=== PATIENT | female | born 1935 | race Two or more races ===

== ENCOUNTER 2017-05-16 16:24 | Inpatient (IN) | payer MEDICARE, MEDICAID ==
--- NOTE | 2017-05-16 17:52 | ED Physician Chart ---
ED Chief Complaint/HPI - Patient Information Date Seen:: 05/16/17 Time Seen:: 17:52 Chief Complaint:: Syncope History of Present Illness:: 81 yo female felt numbness and tingling of bilateral lower extremities. Patient had chronic abdominal pain, s/p hiatal hernia repair Allergies:: Allergies Allergy/AdvReac Type Severity Reaction Status Date / Time Penicillins [PCN] AdvReac Verified 05/16/17 16:32 Sulfa (Sulfonamide AdvReac Verified 05/16/17 16:32 Antibiotics) Vitals:: Vital Signs - 8 hr 05/16/17 16:33 Temp 98.7 F HR 72 RR 16 BP 130/70 O2 Sat % 98 ED Past Medical History - Past Medical History Past Medical History: HTN, DM, Asthma/COPD, PUD/GERD, Other (atrial fibrillation , osteoporosis, urinary incontinence, varicose veins of BLE) Surgical History: Hernia (hiatal hernia repair), other Psychiatricy History: Depression, Other (Anxiety) Family Medical History - Family Member Daughter Hx Family Cancer: No Hx Family Coronary Artery Disease: No Hx Family Stroke: No Hx Family Diabetes: No Hx Family Seizures: No Hx Family Dementia: No Hx Family HIV: No Hx Family COPD: No Hx Family Psychiatric Problems: No ED Septic Shock - <6hrs of presentation: Vital Signs: Vital Signs - 8 hr 05/16/17 16:33 Temp 98.7 F HR 72 RR 16 BP 130/70 O2 Sat % 98
[2017-05-16 18:48] LABS: BASOPHILE ABSOLUTE 0.1 Th/cumm (0-0.2); HEMATOCRIT 37.1 % (41.0-60); HEMOGLOBIN 12.4 gm/dL (12-16); LYMPHOCYTE ABSOLUTE 0.6 Th/cmm (1.5-3.0); MEAN CELL VOLUME 88.6 fl (81-100); MEAN CORPUSCULAR HEMOGLOBIN 29.7 pg (27.0-31.0); MEAN CORPUSCULAR HGB CONC 33.5 pg (28.0-36.0); MEAN PLATELET VOLUME 7.9 fl; MONOCYTE ABSOLUTE 0.4 Th/cmm (0.3-1.0); NEUTROPHILE ABSOLUTE 8.5 Th/cmm (1.8-8.0); PLATELET COUNT 246 Th/cmm (150-400); RED BLOOD COUNT 4.19 Mil/cmm (3.80-5.20); RED CELL DISTRIBUTION WIDTH 13.2 % (11.5-20.0); WHITE BLOOD COUNT 9.6 Th/cmm (4.8-10.8)
[2017-05-16 19:04] LABS: ALB/GLOB RATIO 1.8 (1.0-1.8); ALBUMIN 4.2 gm/dL (3.7-5.3); ALKALINE PHOSPHATASE 36 U/L (34-104); ANION GAP 12.8 (7.0-16.0); BILIRUBIN,TOTAL 1.4 mg/dL (0.3-1.0); BUN - UREA NITROGEN 13 mg/dL (7-25); CALCIUM SERUM 9.4 mg/dL (8.6-10.3); CARBON DIOXIDE 32.5 mEq/L (21.0-31.0); CHLORIDE 91 mEq/L (98-107); CREATININE - SERUM 0.6 mg/dL (0.6-1.2); GLUCOSE 244 mg/dL (70-105); POTASSIUM SERUM 3.3 mEq/L (3.5-5.1); SGOT 24 U/L (13-39); SGPT/ALT 15 U/L (7-52); SODIUM SERUM 133 mEq/L (136-145); TOTAL PROTEIN,SERUM 6.6 gm/dL (6.0-8.3)
[2017-05-16 19:12] LABS: AMYLASE SERUM 38 U/L (29-103); LIPASE 4 U/L (11-82)
[2017-05-16 19:23] LABS: URINE MICROSCOPIC INDICATED? YES; URINE SOURCE RANDOM
[2017-05-16] MEDS ORDERED: Sodium Chloride 0.9% 1,000 ML IV ONE (19:29)
[2017-05-16 19:33] LABS: URINE BILIRUBIN NEGATIVE (NEGATIVE); URINE GLUCOSE (UA) 250 mg/dL (NEGATIVE); URINE KETONE TRACE mg/dL (NEGATIVE); URINE LEUKOCYTE ESTERASE NEGATIVE (NEGATIVE); URINE NITRATE NEGATIVE (NEGATIVE)
[2017-05-16 19:56] LABS: URINE CLARITY CLEAR (CLEAR); URINE COLOR YELLOW
[2017-05-16 19:57] LABS: URINE BACTERIA NONE SEEN /hpf (NONE SEEN); URINE BLOOD NEGATIVE (NEGATIVE); URINE EPITHELIAL CELLS NONE SEEN /lpf (FEW); URINE PROTEIN NEGATIVE (NEGATIVE); URINE RBC NONE SEEN /hpf (0-5); URINE WBC NONE SEEN /hpf (0-5)
[2017-05-16 20:35] LABS: BAND NEUTROPHILE 6 % (0-10); BASOPHIL 0 % (0-3); EOSINOPHIL 0 % (0-5); LYMPHOCYTE 7 % (20-50); MONOCYTE 3 % (2-10); NEUTROPHILS 84 % (40-80); PLATELET ESTIMATE ADEQUATE (NORMAL); PLATELET MORPHOLOGY NORMAL (NORMAL); TOTAL CELLS COUNTED 100
[2017-05-16 21:31] LABS: ALLEN TEST positive
[2017-05-16] MEDS ORDERED: Potassium Chloride 20 mEq ER Tab PO ONE (22:14)
[2017-05-17] MEDS: Hydrocodone/APAP 5mg/325mg Tab PO PRN ×4 (00:24→21:33)
[2017-05-17 00:30] VITALS: BP 119/63
[2017-05-17] MEDS: Sodium Chloride 0.9% 1,000 ML IV SCH ×2 (00:42→21:37)
[2017-05-17 06:37] LABS: % BASOPHILS 1.3 % (0.0-2.0); % EOSINOPHILS 2.3 % (0.0-5.0); % MONOCYTES 8.4 % (2.0-10.0); BASOPHILE ABSOLUTE 0.1 Th/cumm (0-0.2); EOSINOPHILE ABSOLUTE 0.2 Th/cmm (0.1-0.4); HEMOGLOBIN 10.7 gm/dL (12-16); LYMPHOCYTE ABSOLUTE 1.3 Th/cmm (1.5-3.0); MEAN CELL VOLUME 88.6 fl (81-100); MEAN CORPUSCULAR HGB CONC 33.9 pg (28.0-36.0); MEAN PLATELET VOLUME 7.9 fl; MONOCYTE ABSOLUTE 0.6 Th/cmm (0.3-1.0); NEUTROPHILE ABSOLUTE 4.7 Th/cmm (1.8-8.0); PLATELET COUNT 215 Th/cmm (150-400); RED BLOOD COUNT 3.58 Mil/cmm (3.80-5.20); RED CELL DISTRIBUTION WIDTH 13.6 % (11.5-20.0)
[2017-05-17 06:41] LABS: HEMATOCRIT 31.7 % (41.0-60); WHITE BLOOD COUNT 6.9 Th/cmm (4.8-10.8)
[2017-05-17 07:01] LABS: ALB/GLOB RATIO 1.8 (1.0-1.8); ALBUMIN 3.5 gm/dL (3.7-5.3); ALKALINE PHOSPHATASE 29 U/L (34-104); ANION GAP 10.3 (7.0-16.0); BUN - UREA NITROGEN 11 mg/dL (7-25); CALCIUM SERUM 8.5 mg/dL (8.6-10.3); CARBON DIOXIDE 32.2 mEq/L (21.0-31.0); CHLORIDE 96 mEq/L (98-107); CHOLESTEROL 124 mg/dL (<200); CREATININE - SERUM 0.5 mg/dL (0.6-1.2); CREATININE KINASE 893 U/L (30-223); HDL -HIGH DENSITY LIPOPROTEIN 32 mg/dL (23-92); MAGNESIUM 1.6 mg/dL (1.9-2.7); POTASSIUM SERUM 3.5 mEq/L (3.5-5.1); SGOT 27 U/L (13-39); SGPT/ALT 14 U/L (7-52); SODIUM SERUM 135 mEq/L (136-145); TOTAL PROTEIN,SERUM 5.5 gm/dL (6.0-8.3); TRIGLYCERIDES 138 mg/dL (<150)
[2017-05-17 07:02] LABS: GLUCOSE 140 mg/dL (70-105)
--- NOTE | 2017-05-17 08:47 | Diagnostic Imaging Report ---
CT scan of the brain without intravenous contrast HISTORY: Stroke, CVA Total DLP equals 518 CTDI equals 30.6 Axial sections were obtained from the base of the skull to the vertex. There is enlargement of ventricular system along with enlargement of cerebral sulci and subarachnoid cisterns reflecting generalized atrophy. Somewhat more focal encephalomalacia noted through the left temporal parietal region. Changes may be associated with an old infarct. There is an approximate 5 Barrett hypodensity noted within the right temporal white matter region. Changes may be associated with an old infarct. There is generalized hypodensity throughout the supratentorial white matter regions. No mass effect. The findings may be associated with chronic small vessel ischemic disease. No extra-axial masses or abnormal fluid collections. Atherosclerotic calcification seen in the region of the vertebral and basilar arteries at the base of the skull. IMPRESSION: 1. No acute abnormalities 2. Extensive cerebral atrophy. Somewhat more focal encephalomalacia seen within the left temporoparietal area. Changes may reflect an old infarct. 3. Small hypodense focus within the right temporal white matter region that may represent an old lacunar infarct 4. Supratentorial white matter changes that may be associated with chronic small vessel ischemic disease 5. Atherosclerotic vascular changes
--- NOTE | 2017-05-17 08:50 | Diagnostic Imaging Report ---
CT scan of the chest without intravenous contrast HISTORY: Pain, mass Total DLP equals 241 CTDI equals 6.9 Axial sections were obtained from a level above the clavicles down to level below the diaphragm. The heart appears somewhat enlarged. Coronary artery and atherosclerotic vascular calcification is noted. There is a large retrocardiac hiatal hernia with the gastric fundus above the diaphragm. No definite abnormal hilar masses. There are bilateral interstitial lung changes. The overall appearance suggests probable chronic change. No free pleural fluid. Degenerative changes and osteoporosis seen throughout the spine with suggestion of partial compression involving several midthoracic vertebral bodies. IMPRESSION: 1. Large retrocardiac hiatal hernia 2. Bilateral pulmonary parenchymal changes most likely chronic 3. Generous heart size with evidence of coronary artery and atherosclerotic vascular calcification
--- NOTE | 2017-05-17 08:52 | Diagnostic Imaging Report ---
CT scan abdomen and pelvis without intravenous contrast HISTORY: Pain Total DLP equals 485 CTDI equals 11.7 Axial sections were obtained from the xiphoid process down to the pubic symphysis. There is a large retrocardiac hiatal hernia with gastric fundus above the diaphragm. No focal hepatic lesions are seen. The spleen appears normal. No focal abnormality seen within the pancreas. Surgical clips are seen in the candelaria hepatis region consistent with a prior cholecystectomy. There is an approximate 3.0 cm hypodense lesion involving the right adrenal gland. Density measurements are consistent with a benign etiology. No significant focal renal lesions. No hydronephrosis. Atherosclerotic calcination seen throughout the aorta. The exam of the pelvis demonstrates preservation of normal fat planes. No abnormal soft tissue masses or abnormal fluid collections. Stool-filled nondilated large bowel is noted. Atherosclerotic calcination noted throughout the aorta. Degenerative changes of generalized osteoporosis seen throughout the spine. IMPRESSION: 1. Large retrocardiac hiatal hernia 2. Right adrenal lesion. Density measurements are consistent with a benign etiology 3. Status post cholecystectomy 4. Stool-filled nondilated large bowel 5. Atherosclerotic vascular changes
--- NOTE | 2017-05-17 08:58 | Diagnostic Imaging Report ---
Portable chest x-ray HISTORY: Shortness of breath The heart appears enlarged. There is a poor inspiration. No focal bony processes. There is apparent widening of the mediastinum. This may simply be related to patient rotation. A repeat nonrotated chest radiograph if possible or a CT scan would provide for further assessment. There is suggestion a retrocardiac density consistent with a hiatal hernia. IMPRESSION: 1. Apparent widening of the mediastinum probably related to patient rotation. If possible, a repeat nonrotated chest radiograph with provide further assessment. Otherwise, a CT scan would be helpful. 2. Findings suggesting a retrocardiac hiatal hernia 3. Cardiomegaly.
[2017-05-17 09:26] LABS: INR 1.6 (0.5-1.4); PROTHROMBIN TIME (TEST) 17.1 SECONDS (9.5-11.5)
--- NOTE | 2017-05-17 12:00 | History and Physical ---
History of Present Illness - HPI Chief Complaint: Patient refer that she went to the bathroom and suddenly she lost muscle strength of lower extremities and she could not move. Her daughter help her and both sitting down in the floor because she has no muscle strength. The call ambulance and was transported to ER. HPI: Patient lost muscle strength in all extremities and was not able to walk. She never lost conscious. Vital Signs: Last Vital Signs Temp 98.8 F 05/17/17 08:33 Pulse 91 05/17/17 08:33 Resp 16 05/17/17 08:33 BP 150/82 05/17/17 08:33 Pulse Ox 99 05/17/17 08:33 Past Medical History Cardiovascular: Report: AFIB, CAD, HTN Pulmonary: Report: COPD [employer]: Report: No Pertinent Hx GI: Report: Other (S/P Hiatal hernia) Psych: Report: No Pertinent Hx Musculoskeletal: Report: Weakness Infectious Disease: Report: No Pertinent Hx Renal/: Report: No Pertinent Hx Endocrine: Report: No Pertinent Hx Dermatology: Report: Other (PVD) - Past Surgical History Past Surgical History: Other (Hernia hiatal repair.) Family Medical History - Family Member Daughter History Unknown: Yes Ethnicity: Unknown Living Status: Unknown Hx Family Cancer: (UNKNOWN) Hx Family Coronary Artery Disease: (UNKNOWN) Hx Family Congestive Heart Failure: (UNKNOWN) Hx Family Hypertension: (UNKNOWN) Hx Family Stroke: (UNKNOWN) Hx Family Diabetes: (UNKNOWN) Hx Family Seizures: (UNKNOWN) Hx Family Dementia: (UNKNOWN) Hx Family AIDS: (UNKNOWN) Hx Family HIV: No Hx Family COPD: (UNKNOWN) Hx Family Hepatitis: (UNKNOWN) Hx Family Psychiatric Problems: (UNKNOWN) Hx Family Tuberculosis: (UNKNOWN) Other Medical History: UNKNOWN Social History Smoke: No Alcohol: None Drugs: None Lives: With Family Domestic Violence: Negative - Medications Home Medications: Home Medication Medication Instructions Recorded Type Digoxin [Lanoxin] 0.125 mg PO DAILY 05/17/17 History Hydrocodone/APAP 5mg/325mg [[place] 1 tab PO Q6H PRN 05/17/17 History 5mg/325mg] Losartan/Hydrochlorothiazide 1 tab PO DAILY 05/17/17 History [Losartan-Hctz 100-12.5 mg Tab] Magnesium Hydroxide [Milk of 30 ml PO HS 05/17/17 History Magnesia] Meclizine [Antivert*] 12.5 mg PO TID PRN 05/17/17 History Warfarin Sodium [Coumadin] 2.5 mg PO DAILY 05/17/17 History alprazOLAM [Xanax*] 0.25 mg PO Q6HR PRN 05/17/17 History metFORMIN [Glucophage] 500 mg PO TID 05/17/17 History - Allergies Allergies/Adverse Reactions: Allergies Allergy/AdvReac Type Severity Reaction Status Date / Time Penicillins [PCN] AdvReac Verified 05/16/17 16:32 Sulfa (Sulfonamide AdvReac Verified 05/16/17 16:32 Antibiotics) Review of Systems - Review of Systems Constitutional: Report: Weakness Eyes: Report: No Significant ENT: Report: No Significant Respiratory: Report: No Significant Cardiovascular: Report: Palpitations Genitourinary: Report: No Significant Musculoskeletal: Report: Other (Weakness) Skin: Report: Other (Lower extremiries skin are dry, with poor circulation. ) Neurological: Report: Weakness Physical Exam - Physical Exam HEENT: Report: Ears Nose Throat within normal limits Neck: Report: Within normal limits Cardiovascular Systems: Report: Other (Irregular) Respiratory: Report: Breath Sounds are within normal limits Abdomen: Report: Non-tender to palpation Back: Report: Other (pain at palpation) Extremities: Report: Non-tender to palpation. Skin: Report: Other (Lower stremities skin is dry purple color) Neuro/Psych: Report: Mood affect is within normal limits - Lab Results All Lab Results last 24 hours: Laboratory Results - last 24 hr 05/17/17 05/17/17 05/17/17 00:14 06:19 06:19 WBC 6.9 D RBC 3.58 L Hgb 10.7 L Hct 31.7 L D MCV 88.6 MCH 30.0 MCHC Differential 33.9 RDW 13.6 Plt Count 215 MPV 7.9 Neutrophils % 69.0 Lymphocytes % 19.0 L Monocytes % 8.4 Eosinophils % 2.3 Basophils % 1.3 PT INR Sodium 135 L Potassium 3.5 Chloride 96 L Carbon Dioxide 32.2 H Anion Gap 10.3 BUN 11 Creatinine 0.5 L Est GFR ( Amer) TNP Est GFR (Non-Af Amer) TNP BUN/Creatinine Ratio 22.0 Glucose 140 H D POC Glucose 147 H Calcium 8.5 L Magnesium 1.6 L Total Bilirubin 2.0 H AST 27 ALT 14 Alkaline Phosphatase 29 L Ammonia Creatine Kinase 893 H CK-MB (CK-2) 13.9 H Troponin I Total Protein 5.5 L Albumin 3.5 L Globulin 2.0 Albumin/Globulin Ratio 1.8 Triglycerides 138 Cholesterol 124 LDL Cholesterol Direct 80 HDL Cholesterol 32 05/17/17 05/17/17 05/17/17 06:19 08:00 08:38 WBC RBC Hgb Hct MCV MCH MCHC Differential RDW Plt Count MPV Neutrophils % Lymphocytes % Monocytes % Eosinophils % Basophils % PT 17.1 H INR 1.60 H Sodium Potassium Chloride Carbon Dioxide Anion Gap BUN Creatinine Est GFR ( Amer) Est GFR (Non-Af Amer) BUN/Creatinine Ratio Glucose POC Glucose Calcium Magnesium Total Bilirubin AST ALT Alkaline Phosphatase Ammonia 64 H Creatine Kinase CK-MB (CK-2) Troponin I 0.04 Total Protein Albumin Globulin Albumin/Globulin Ratio Triglycerides Cholesterol LDL Cholesterol Direct HDL Cholesterol - Assessment Assessment: Patient is awake, alert, calm, in no acute distress. Dx: Loss of muscle strength , A-fib, DM, COPD, GERD. - Plan Plan: Patient is continue with home meds, MRI ordered, Consult with neurology, cardio and GI requested. Will continue to monitor.
[2017-05-17] MEDS ORDERED: Mag Sulfate 2gm/50mL Premix 2 GM/50 ML BAG IV ONE (13:57)
[2017-05-17 15:38] LABS: A1C % 7.3 % (4.0-6.0)
--- NOTE | 2017-05-17 16:13 | General Progress Note ---
Subjective - Review of Systems Service Date: 05/17/17 Events since last encounter: consult dictated CT results noted patient appears to be asymptomatic of the large hiatal hernia will need EGD if she has dysphagia sor SOB Objective - Results Result Diagrams: 05/17/17 06:19 05/17/17 06:19 Recent Labs: Laboratory Last Values WBC 6.9 Th/cmm (4.8-10.8) D 05/17/17 06:19 RBC 3.58 Mil/cmm (3.80-5.20) L 05/17/17 06:19 Hgb 10.7 gm/dL (12-16) L 05/17/17 06:19 Hct 31.7 % (41.0-60) L D 05/17/17 06:19 MCV 88.6 fl (81-100) 05/17/17 06:19 MCH 30.0 pg (27.0-31.0) 05/17/17 06:19 MCHC Differential 33.9 pg (28.0-36.0) 05/17/17 06:19 RDW 13.6 % (11.5-20.0) 05/17/17 06:19 Plt Count 215 Th/cmm (150-400) 05/17/17 06:19 MPV 7.9 fl 05/17/17 06:19 Neutrophils % 69.0 % (40.0-80.0) 05/17/17 06:19 Band Neutrophils % 6 % (0-10) 05/16/17 18:40 Lymphocytes % 19.0 % (20.0-50.0) L 05/17/17 06:19 Monocytes % 8.4 % (2.0-10.0) 05/17/17 06:19 Eosinophils % 2.3 % (0.0-5.0) 05/17/17 06:19 Basophils % 1.3 % (0.0-2.0) 05/17/17 06:19 Neutrophils (Manual) 84 % (40-80) H 05/16/17 18:40 Lymphocytes 7 % (20-50) L 05/16/17 18:40 Monocytes 3 % (2-10) 05/16/17 18:40 Eosinophils 0 % (0-5) 05/16/17 18:40 Basophils 0 % (0-3) 05/16/17 18:40 Platelet Estimate ADEQUATE (NORMAL) 05/16/17 18:40 Platelet Morphology NORMAL (NORMAL) 05/16/17 18:40 RBC Morph Micro Appear NORMAL (NORMAL) 05/16/17 18:40 PT 17.1 SECONDS (9.5-11.5) H 05/17/17 08:38 INR 1.60 (0.5-1.4) H 05/17/17 08:38 Specimen Source arterial 05/16/17 19:27 Sample Site right radial 05/16/17 19:27 pH 7.50 (7.35-7.45) H 05/16/17 19:27 pCO2 50.0 mmHg (35.0-45.0) H 05/16/17 19:27 pO2 82.0 mmHg (80.0-100.0) 05/16/17 19:27 HCO3 35.7 mEq/L (20.0-26.0) H 05/16/17 19:27 Base Excess 13.8 mEq/L (-3.0-3.0) H 05/16/17 19:27 O2 Saturation 97.0 % (92.0-100.0) 05/16/17 19:27 Antonio Test positive 05/16/17 19:27 Vent Rate n/a 05/16/17 19:27 Inspired O2 28 05/16/17 19:27 Tidal Volume n/a 05/16/17 19:27 PEEP n/a 05/16/17 19:27 Pressure (ins/psv/peep) n/a 05/16/17 19:27 Critical Value ab wire basket maker 05/16/17 19:27 Sodium 135 mEq/L (136-145) L 05/17/17 06:19 Potassium 3.5 mEq/L (3.5-5.1) 05/17/17 06:19 Chloride 96 mEq/L (98-107) L 05/17/17 06:19 Carbon Dioxide 32.2 mEq/L (21.0-31.0) H 05/17/17 06:19 Anion Gap 10.3 (7.0-16.0) 05/17/17 06:19 BUN 11 mg/dL (7-25) 05/17/17 06:19 Creatinine 0.5 mg/dL (0.6-1.2) L 05/17/17 06:19 Est GFR ( Amer) TNP 05/17/17 06:19 Est GFR (Non-Af Amer) TNP 05/17/17 06:19 BUN/Creatinine Ratio 22.0 05/17/17 06:19 Glucose 140 mg/dL (70-105) H D 05/17/17 06:19 POC Glucose 147 MG/DL (70 - 105) H 05/17/17 00:14 Hemoglobin A1c % 7.3 % (4.0-6.0) H 05/16/17 18:40 Calcium 8.5 mg/dL (8.6-10.3) L 05/17/17 06:19 Magnesium 1.6 mg/dL (1.9-2.7) L 05/17/17 06:19 Total Bilirubin 2.0 mg/dL (0.3-1.0) H 05/17/17 06:19 AST 27 U/L (13-39) 05/17/17 06:19 ALT 14 U/L (7-52) 05/17/17 06:19 Alkaline Phosphatase 29 U/L (34-104) L 05/17/17 06:19 Ammonia 64 umol/L (16-53) H 05/17/17 08:00 Creatine Kinase 893 U/L (30-223) H 05/17/17 06:19 CK-MB (CK-2) 13.9 ng/mL (0.6-6.3) H 05/17/17 06:19 Troponin I 0.04 ng/mL (0.01-0.05) 05/17/17 06:19 B-Natriuretic Peptide 181.0 pg/mL (5.0-100.0) H 05/16/17 18:40 Total Protein 5.5 gm/dL (6.0-8.3) L 05/17/17 06:19 Albumin 3.5 gm/dL (3.7-5.3) L 05/17/17 06:19 Globulin 2.0 gm/dL 05/17/17 06:19 Albumin/Globulin Ratio 1.8 (1.0-1.8) 05/17/17 06:19 Triglycerides 138 mg/dL (<150) 05/17/17 06:19 Cholesterol 124 mg/dL (<200) 05/17/17 06:19 LDL Cholesterol Direct 80 mg/dL (75-193) 05/17/17 06:19 HDL Cholesterol 32 mg/dL (23-92) 05/17/17 06:19 Amylase 38 U/L (29-103) 05/16/17 18:40 Lipase 4 U/L (11-82) L 05/16/17 18:40 Urine Source RANDOM 05/16/17 19:05 Urine Color YELLOW 05/16/17 19:05 Urine Clarity CLEAR (CLEAR) 05/16/17 19:05 Urine pH 8.0 (4.6 - 8.0) 05/16/17 19:05 Ur Specific [place] 1.015 (1.005-1.030) 05/16/17 19:05 Urine Protein NEGATIVE mg/dL (NEGATIVE) 05/16/17 19:05 Urine Glucose (UA) 250 mg/dL (NEGATIVE) H 05/16/17 19:05 Urine Ketones TRACE mg/dL (NEGATIVE) 05/16/17 19:05 Urine Blood NEGATIVE (NEGATIVE) 05/16/17 19:05 Urine Nitrate NEGATIVE (NEGATIVE) 05/16/17 19:05 Urine Bilirubin NEGATIVE (NEGATIVE) 05/16/17 19:05 Urine Urobilinogen 1.0 E.U./dL (0.2 - 1.0) 05/16/17 19:05 Ur Leukocyte Esterase NEGATIVE (NEGATIVE) 05/16/17 19:05 Urine RBC NONE SEEN /hpf (0-5) 05/16/17 19:05 Urine WBC NONE SEEN /hpf (0-5) 05/16/17 19:05 Ur Epithelial Cells NONE SEEN /lpf (FEW) 05/16/17 19:05 Urine Bacteria NONE SEEN /hpf (NONE SEEN) 05/16/17 19:05 - Physical Exam Vitals and I&O: Vital Signs Temp 97.7 F 05/17/17 12:00 Pulse 95 05/17/17 13:54 Resp 16 05/17/17 15:27 BP 135/66 05/17/17 12:00 Pulse Ox 99 05/17/17 12:00 Intake & Output 05/16/17 05/17/17 05/17/17 18:59 06:59 18:59 Intake Total 480 Balance 480 Weight (lbs) 67.132 kg Intake: Oral 480 Other: # Voids 1 # Bowel Movements 0 Stool Characteristics Soft Active Medications: Current Medications Acetaminophen/Hydrocodone Bitart ([place] 5mg/325mg) 1 tab PO Q6H PRN PRN Reason: Pain (Moderate) Stop: 07/15/17 23:54 Last Admin: 05/17/17 11:17 Dose: 1 tab Alprazolam (Xanax) 0.25 mg PO Q6HR PRN; Protocol PRN Reason: Anxiety Stop: 07/16/17 12:10 Digoxin (Lanoxin) 0.125 mg PO DAILY [facility] Stop: 07/16/17 12:14 Last Admin: 05/17/17 13:54 Dose: 0.125 mg Sodium Chloride (Nacl 0.9%) 1,000 mls @ 60 mls/hr IV .[id number] [facility] Stop: 07/15/17 22:14 Last Admin: 05/17/17 00:42 Dose: 60 mls/hr Lactulose (Cephulac) 20 gm PO BID [facility] Stop: 07/16/17 16:59 Magnesium Hydroxide (Milk Of Magnesia) 30 ml PO HS [facility] Stop: 07/16/17 20:59 Miscellaneous (Losartan/Hydrochlorothiazide [Losartan-Hctz 100-12.5 Mg Tab]) 1 tab PO DAILY [facility] Stop: 07/17/17 08:59 Pantoprazole Sodium (Protonix) 40 mg IVP DAILY [facility] Stop: 07/16/17 12:29 Last Admin: 05/17/17 15:40 Dose: 40 mg Warfarin Sodium (Coumadin Per Pharmacy) 1 ea MC PRN PRN; Protocol PRN Reason: RX MONITORING Stop: 07/16/17 12:46 Nutritional Asmnt/Malnutr-PDOC - Dietary Evaluation Malnutrition Findings (Please click <Entered> for more info): Nutritional Asmnt/Malnutrition Start: 05/17/17 12: 52 Text: Status: Active Freq: Document 05/17/17 12:52 NATALYA (Rec: 05/17/17 13:15 NATALYA SEGAL- [email or web address]) Nutritional Asmnt/Malnutrition Patient General Information Nutritional Screening Consult Diagnosis syncope Pertinent Medical Hx/Surgical Hx Afib, CAD, HTN, COPD, Hiatal hernia, weakness, PVD Subjective Information Consult received for Diabetic, small skin tear, discoloration and no appetite to eat. Current Diet Order/ Nutrition Support Pureed Patient / S.O Can Pertinent Medications lactulose, MOM, protonix, coumadin Pertinent Labs Glucose 140-244, magnesium 1.6 , Total bilirubin 2, ammonia 64, total protein 5.5, albumin 3.5 Nutritional Hx/Data Height 1.55 m Height (Calculated Centimeters) 154.9 Current Weight (lbs) 67.132 kg Weight (Calculated Kilograms) 67.1 Weight (Calculated Grams) 09406.7 [place] Body Weight 105 % [place] Body Weight 140 Body Mass Index (BMI) 27.9 Recent Weight Change No Weight Status Overweight GI Symptoms GI Symptoms Constipation Last BM None noted since admission Difficult in: None Food Allergies No Cultural/Ethnic/Mormon Belief None indicated Usual diet at home Regular Skin Integrity/Comment: [place] 15, Skin tear Lower extremity Current %PO Poor (25-49%) Estimated Nutritional Goals BEE in Kcals: Using Current wt Calories/Kcals/Kg 67.2kg CBW (25-30 kcal/kg) Kcals Calculated ~3378-8113 kcal/day Protein: Using Current wt Protein g/k gm/kg Protein Calculated ~65 gm/day Fluid: ml ~2906-5664 ml/day (1 ml/kcal) Nutritional Problem 2. Problem Problem Altered GI function related to Etiology constipation aeb Signs/Symptoms: no BM since admission. 1. Problem Problem Inadequate oral itake related to Etiology decreased appetite, increased nutrient needs Signs/Symptoms: aeb meeting <50% of estimated nutrient needs Intervention/Recommendation Comments 1. Continue Pureed diet as tolerated by patient; this diet provides Health Shake every meal for extra nutrition . 2. Bowel regimen per MD; bowel movement may help with appetite. 3. If appetite still not improved, MD to consider appetite stimulant to help oral intake. 4. If POC glucose increases, consider modifying to 60 gm CCHO. 5. Consider MVI and Vitamin C due to impaired skin integrity . Expected Outcomes/Goals Expected Outcomes/Goals Oral intake to meet >75% of estimated nutrient needs, nutrition related labs normalize, weight stable, improved skin integrity.
[2017-05-17] MEDS: Lactulose 10 Gm/15 mL 30mL UDC PO SCH (16:50)
--- NOTE | 2017-05-17 18:09 | Consultation ---
DATE OF CONSULTATION: 05/17/2017 SURGICAL CONSULTATION REFERRING PHYSICIAN: Dr. Leija. REASON FOR CONSULTATION: Hiatal hernia. Thank you for referring this patient to me. HISTORY OF PRESENT ILLNESS: This is an 81-year-old female who came in through the Emergency Room because of sudden loss of strength of the lower extremities, raising the question of a CVA. The patient underwent CT of the head, which did not show new infarct, but probably an old lacunar infarct. CT of the chest; however, showed a large retrocardiac hiatal hernia. CT of the abdomen showed a previous cholecystectomy. No acute abnormality except for stool filled colon. PAST MEDICAL HISTORY: Includes previous hiatal hernia repair x 2, last being about 8 years ago. The other comorbidities include hypertension, diabetes mellitus, COPD and atrial fibrillation. LABORATORY STUDIES: Showed CBC to be essentially normal. Chemistry, potassium is 3.3, BUN is normal as the creatinine. Blood sugar high at 244. Total bilirubin high at 1.4 and this was repeated today and it has gone up to 2.0. PHYSICAL EXAMINATION: GENERAL: The patient appears to be oriented. ABDOMEN: Distended. There is quite a bit of firmness in the mid abdomen above the umbilicus. The patient does not appear to be in any distress for swallowing and/or breathing in spite of the large retrocardiac hiatal hernia. RECOMMENDATIONS: If the patient remains essentially asymptomatic from the hiatal hernia, diagnostic EGD might be performed, but repair would be questionable in view of her advanced age. We will follow with you. [facility]# [id number]
--- NOTE | 2017-05-17 21:29 | Consultation ---
DATE OF CONSULTATION: 05/17/2017 NEUROLOGY CONSULT HISTORY OF PRESENT ILLNESS: An 81-year-old female complains of passing out. Apparently, she collapsed to the ground. I am not sure whether she actually passed out or not. She has been complaining of some tingling in the lower extremity, weakness, having more and more difficulty getting up and walking. PAST MEDICAL HISTORY: Diabetes, hypertension, COPD, asthma, atrial fibrillation, osteoporosis, varicose veins both legs and GERD. PAST SURGICAL HISTORY: Surgery is hernia. PSYCHIATRIC ILLNESS: Depression. MEDICATIONS: As per reconciliation. Here, the patient is essentially on [place]. REVIEW OF SYSTEMS: The patient is weak. Difficulty walking now. Urinary incontinence. Confused. Forgetful. No seizures. Review of systems is otherwise negative. PHYSICAL EXAMINATION: VITAL SIGNS: Temperature 97.6, blood pressure 120/64, pulse is 68. NECK: Supple. No neck bruits. HEART: Sounds S1, S2. LUNGS: Clear. NEUROLOGIC: The patient is awake, alert. The patient gives me her name. She tells me where she lives. She is able to name simple objects. She did not know the day. She knew the month. CRANIAL: Pupils react to light. Full eye movement. MOTOR: She will lift both arms up, but moans and groans and complains of muscles pain over the shoulder, proximal arms. Legs, she will bend them at the knees, unable to hold them up. Weakness at the feet. Reflex is about -1 in upper extremity and absent at the knees and ankles. Sensation is reduced in the feet. INVESTIGATIONS: The patient had a CT scan, but I do not have the report. LABORATORY DATA: WBC is 6.9, hemoglobin 10.7. ABGs, pCO2 50.0. Sodium 135, magnesium 1.6. CPK is elevated at 893. ASSESSMENT: 1. Syncope. 2. Weakness. 3. Rule out myelopathy, rule out cervical spinal process. 4. Diabetes with neuropathy. 5. Atrial fibrillation. 6. Hypertension. PLAN: MRI cervical spine. Lab studies. The patient's further workup depending on the progress. JOB# [id number]
[2017-05-17] MEDS: Magnesium Hydroxide (MOM) 30 mL UDC PO SCH (21:33)
--- NOTE | 2017-05-18 03:19 | Consultation ---
DATE OF CONSULTATION: 05/17/2017 REASON FOR CONSULTATION: Large hiatal hernia, near syncopal episode, and whether they are related. HISTORY OF PRESENT ILLNESS: This consult was obtained through the courtesy of Dr. Leija for this 81-year-old with history of hypertension, diabetes, osteoporosis, atrial fibrillation, large hiatal hernia, who had surgery for the hiatal hernia at least once possibly second surgery whether for the hernia itself or more than likely to repair of ventral hernia. The patient presented to the hospital with a near syncopal episode. She was in the bathroom, she could stand up, then became wobbly, and then she could not remember what was happening, so even if the family claims that she did not lose consciousness, there has to be a period of time where she does not remember what happened, so she has either syncope or near syncopal episode. When she came to the hospital here, she was evaluated for that and part of the workup included CT that showed large retrocardiac hiatal hernia. GI consult was called in for further evaluation. The patient had surgery in 2002 in [place] and a year later, she had another surgery with a mesh placed, so more than likely she had a ventral hernia and then we put a mesh there. The patient was evaluated in [facility] about 8 or 9 years ago and was told that she has a large hiatal hernia still, but she was advised not to have surgery. The patient denies ongoing issues, but the symptoms yesterday. She usually tend to have constipation. No nausea or vomiting, no weight loss. PAST MEDICAL HISTORY: Hypertension, diabetes, osteoporosis, and atrial fibrillation. PAST SURGICAL HISTORY: She had hernia repair. She had hip surgery. SOCIAL HISTORY: Ex-smoker, quit in 1998, nonalcoholic, non-IV drug abuser. FAMILY HISTORY: Noncontributory. ALLERGIES: Penicillin and sulfa. MEDICATIONS: The patient is given Gabriels, Xanax, digoxin, lactulose, milk of magnesia, Antivert, Coumadin. REVIEW OF SYSTEMS: No weight loss. No hematemesis, melena, or hematochezia. Some mild abdominal pain. PHYSICAL EXAMINATION: GENERAL: The patient is awake, oriented to self, place and time, in mild distress. VITAL SIGNS: Blood pressure is 150/82, heart rate 91, respiratory rate 16, temperature is 98.8. HEAD AND NECK: Pupils reactive to light. Extraocular muscles normal. Sclerae are anicteric. Conjunctivae not pale. Oral cavity, no lesion. NECK: Supple, no jugular venous distention, no carotid lymph node. CHEST: Good respiratory movements. LUNGS: Clear to auscultation. CARDIOVASCULAR: Irregular heart rate. No murmur or gallop. ABDOMEN: Soft, some lumpiness in the abdomen most likely related to fat and mesh. There is bowel sounds and mild diffuse tenderness. EXTREMITIES: Lower extremities, no edema. CENTRAL NERVOUS SYSTEM: Grossly nonfocal. LABORATORY DATA: White count is 6.9, H and H are 10.7 and 31.7 with platelets of 215. Her PT is 17.1 seconds, INR 1.6, BUN and creatinine are 11 and 0.5, bilirubin is 2. AST and ALT of 27 and 14. Alkaline phosphatase is 29. CT of the abdomen and pelvis showed large retrocardiac hiatal hernia, right adrenal lesion status post cholecystectomy, stool filled colon, and CAT scan of the chest confirmed the same thing. IMPRESSION: An 81-year-old with a near syncopal episode, now with a hiatal hernia, constipation, abnormal bilirubin. ASSESSMENT AND PLAN: 1. Hiatal hernia. I doubt that it has anything to do with the current episode. This is most likely contributing to chronic GERD. It would not cause an acute symptom right now. So, recommendations: 1. PPI. 2. Continue workup for the syncopal episode. 3. Further evaluation depending on the above. If this all negative, consider upper GI series or EGD. 4. If patient is to have surgery, it might be better within a tertiary center given that she had couple of surgeries before. 2. Constipation. The patient was given lactulose. Continue current management. Stool softer and if needed, we can give her mineral oil or mag citrate, but will wait for the cardiac evaluation. 3. Abnormal bilirubin could be related to Gilbert disease, could be related to the retained common bile duct stone, especially status post cholecystectomy. We will get an ultrasound and recheck labs in the morning. Other medical problems such as diabetes, hypertension, and atrial fibrillation as per Dr. Leija. Thank you, Dr. Leija for allowing me to participate in the care of this patient. If you have any further questions, please let me know. JOB# [id number]
[2017-05-18 06:05] LABS: % BASOPHILS 0.7 % (0.0-2.0); % LYMPHOCYTES 22.6 % (20.0-50.0); % MONOCYTES 9.4 % (2.0-10.0); % NEUTROPHILS 64.3 % (40.0-80.0); EOSINOPHILE ABSOLUTE 0.2 Th/cmm (0.1-0.4); HEMATOCRIT 32.7 % (41.0-60); HEMOGLOBIN 11.1 gm/dL (12-16); LYMPHOCYTE ABSOLUTE 1.2 Th/cmm (1.5-3.0); MEAN CELL VOLUME 89.3 fl (81-100); MEAN CORPUSCULAR HEMOGLOBIN 30.3 pg (27.0-31.0); MEAN CORPUSCULAR HGB CONC 33.9 pg (28.0-36.0); MEAN PLATELET VOLUME 8.6 fl; MONOCYTE ABSOLUTE 0.5 Th/cmm (0.3-1.0); NEUTROPHILE ABSOLUTE 3.5 Th/cmm (1.8-8.0); PLATELET COUNT 191 Th/cmm (150-400); RED BLOOD COUNT 3.67 Mil/cmm (3.80-5.20); RED CELL DISTRIBUTION WIDTH 13.2 % (11.5-20.0)
[2017-05-18 06:06] LABS: WHITE BLOOD COUNT 5.4 Th/cmm (4.8-10.8)
[2017-05-18 06:10] LABS: INR 1.4 (0.5-1.4); PROTHROMBIN TIME (TEST) 14.9 SECONDS (9.5-11.5)
[2017-05-18 06:15] LABS: ALB/GLOB RATIO 1.6 (1.0-1.8); ALBUMIN 3.6 gm/dL (3.7-5.3); ALKALINE PHOSPHATASE 43 U/L (34-104); ANION GAP 10.2 (7.0-16.0); BILIRUBIN,TOTAL 1.9 mg/dL (0.3-1.0); BUN - UREA NITROGEN 9 mg/dL (7-25); CALCIUM SERUM 8.5 mg/dL (8.6-10.3); CARBON DIOXIDE 30.4 mEq/L (21.0-31.0); CHLORIDE 100 mEq/L (98-107); CREATININE - SERUM 0.5 mg/dL (0.6-1.2); GLUCOSE 149 mg/dL (70-105); POTASSIUM SERUM 3.6 mEq/L (3.5-5.1); SGOT 112 U/L (13-39); SGPT/ALT 55 U/L (7-52); SODIUM SERUM 137 mEq/L (136-145); TOTAL PROTEIN,SERUM 5.8 gm/dL (6.0-8.3)
[2017-05-18] MEDS: Hydrocodone/APAP 5mg/325mg Tab PO PRN ×3 (06:38→21:26)
[2017-05-18] MEDS ORDERED: HYDROCHLOROTHIAZIDE PO SCH (09:00)
[2017-05-18] MEDS ORDERED: [UNRECOGNIZED DRUG - OTHER] PO SCH (09:00)
[2017-05-18] MEDS ORDERED: LOSARTAN PO SCH (09:00)
--- NOTE | 2017-05-18 09:16 | Diagnostic Imaging Report ---
Bilateral carotid Doppler ultrasound exam HISTORY: Syncope Sonographic sector images were obtained to the carotid bifurcation regions bilaterally. Associated Doppler data was obtained. The exam of the right side demonstrates mild focal atherosclerotic plaque in the carotid bulb region resulting in less than 20% narrowing. Velocities and flow ratios are normal (before meals/CCA equals 0.87). Antegrade vertebral artery flow. The exam of the left side demonstrates mild diffuse plaque within the probable region. No significant narrowing or stenosis. Antegrade vertebral artery flow. Velocities and flow ratios are normal (ICA/CCA equals 1.24). IMPRESSION: 1. Mild bilateral atherosclerotic changes that do not appear to be hemodynamically significant.
[2017-05-18] MEDS: Lactulose 10 Gm/15 mL 30mL UDC PO SCH ×3 (11:04→20:29)
[2017-05-18] MEDS ORDERED: Fleet Enema 135 mL RC ONE (13:53)
--- NOTE | 2017-05-18 14:14 | General Progress Note ---
Subjective - Review of Systems Service Date: 05/18/17 Subjective: I have not evacuated. Objective - Results Result Diagrams: 05/18/17 05:10 05/18/17 05:10 Recent Labs: Laboratory Last Values WBC 5.4 Th/cmm (4.8-10.8) D 05/18/17 05:10 RBC 3.67 Mil/cmm (3.80-5.20) L 05/18/17 05:10 Hgb 11.1 gm/dL (12-16) L 05/18/17 05:10 Hct 32.7 % (41.0-60) L 05/18/17 05:10 MCV 89.3 fl (81-100) 05/18/17 05:10 MCH 30.3 pg (27.0-31.0) 05/18/17 05:10 MCHC Differential 33.9 pg (28.0-36.0) 05/18/17 05:10 RDW 13.2 % (11.5-20.0) 05/18/17 05:10 Plt Count 191 Th/cmm (150-400) 05/18/17 05:10 MPV 8.6 fl 05/18/17 05:10 Neutrophils % 64.3 % (40.0-80.0) 05/18/17 05:10 Band Neutrophils % 6 % (0-10) 05/16/17 18:40 Lymphocytes % 22.6 % (20.0-50.0) 05/18/17 05:10 Monocytes % 9.4 % (2.0-10.0) 05/18/17 05:10 Eosinophils % 3.0 % (0.0-5.0) 05/18/17 05:10 Basophils % 0.7 % (0.0-2.0) 05/18/17 05:10 Neutrophils (Manual) 84 % (40-80) H 05/16/17 18:40 Lymphocytes 7 % (20-50) L 05/16/17 18:40 Monocytes 3 % (2-10) 05/16/17 18:40 Eosinophils 0 % (0-5) 05/16/17 18:40 Basophils 0 % (0-3) 05/16/17 18:40 Platelet Estimate ADEQUATE (NORMAL) 05/16/17 18:40 Platelet Morphology NORMAL (NORMAL) 05/16/17 18:40 RBC Morph Micro Appear NORMAL (NORMAL) 05/16/17 18:40 ESR 26 mm/hr (0-30) 05/18/17 05:10 PT 14.9 SECONDS (9.5-11.5) H 05/18/17 05:10 INR 1.40 (0.5-1.4) 05/18/17 05:10 Specimen Source arterial 05/16/17 19:27 Sample Site right radial 05/16/17 19:27 pH 7.50 (7.35-7.45) H 05/16/17 19:27 pCO2 50.0 mmHg (35.0-45.0) H 05/16/17 19:27 pO2 82.0 mmHg (80.0-100.0) 05/16/17 19:27 HCO3 35.7 mEq/L (20.0-26.0) H 05/16/17 19:27 Base Excess 13.8 mEq/L (-3.0-3.0) H 05/16/17 19:27 O2 Saturation 97.0 % (92.0-100.0) 05/16/17 19:27 Antonio Test positive 05/16/17 19:27 Vent Rate n/a 05/16/17 19:27 Inspired O2 28 05/16/17 19:27 Tidal Volume n/a 05/16/17 19:27 PEEP n/a 05/16/17 19:27 Pressure (ins/psv/peep) n/a 05/16/17 19:27 Critical Value ab insurance operations rep 05/16/17 19:27 Sodium 137 mEq/L (136-145) 05/18/17 05:10 Potassium 3.6 mEq/L (3.5-5.1) 05/18/17 05:10 Chloride 100 mEq/L (98-107) 05/18/17 05:10 Carbon Dioxide 30.4 mEq/L (21.0-31.0) 05/18/17 05:10 Anion Gap 10.2 (7.0-16.0) 05/18/17 05:10 BUN 9 mg/dL (7-25) 05/18/17 05:10 Creatinine 0.5 mg/dL (0.6-1.2) L 05/18/17 05:10 Est GFR ( Amer) TNP 05/18/17 05:10 Est GFR (Non-Af Amer) TNP 05/18/17 05:10 BUN/Creatinine Ratio 18.0 05/18/17 05:10 Glucose 149 mg/dL (70-105) H 05/18/17 05:10 POC Glucose 147 MG/DL (70 - 105) H 05/17/17 00:14 Hemoglobin A1c % 7.3 % (4.0-6.0) H 05/16/17 18:40 Calcium 8.5 mg/dL (8.6-10.3) L 05/18/17 05:10 Magnesium 1.6 mg/dL (1.9-2.7) L 05/17/17 06:19 Total Bilirubin 1.9 mg/dL (0.3-1.0) H 05/18/17 05:10 AST 112 U/L (13-39) H 05/18/17 05:10 ALT 55 U/L (7-52) H 05/18/17 05:10 Alkaline Phosphatase 43 U/L (34-104) 05/18/17 05:10 Ammonia 64 umol/L (16-53) H 05/17/17 08:00 Creatine Kinase 358 U/L (30-223) H 05/18/17 05:10 CK-MB (CK-2) 3.0 ng/mL (0.6-6.3) 05/18/17 05:10 Troponin I 0.04 ng/mL (0.01-0.05) 05/17/17 06:19 C-Reactive Protein 4.5 mg/dL (0.0-0.9) H 05/18/17 05:10 B-Natriuretic Peptide 181.0 pg/mL (5.0-100.0) H 05/16/17 18:40 Total Protein 5.8 gm/dL (6.0-8.3) L 05/18/17 05:10 Albumin 3.6 gm/dL (3.7-5.3) L 05/18/17 05:10 Globulin 2.2 gm/dL 05/18/17 05:10 Albumin/Globulin Ratio 1.6 (1.0-1.8) 05/18/17 05:10 Triglycerides 138 mg/dL (<150) 05/17/17 06:19 Cholesterol 124 mg/dL (<200) 05/17/17 06:19 LDL Cholesterol Direct 80 mg/dL (75-193) 05/17/17 06:19 HDL Cholesterol 32 mg/dL (23-92) 05/17/17 06:19 Amylase 38 U/L (29-103) 05/16/17 18:40 Lipase 4 U/L (11-82) L 05/16/17 18:40 TSH 4.02 uIU/ml (0.34-5.60) 05/18/17 05:10 Urine Source RANDOM 05/16/17 19:05 Urine Color YELLOW 05/16/17 19:05 Urine Clarity CLEAR (CLEAR) 05/16/17 19:05 Urine pH 8.0 (4.6 - 8.0) 05/16/17 19:05 Ur Specific [place] 1.015 (1.005-1.030) 05/16/17 19:05 Urine Protein NEGATIVE mg/dL (NEGATIVE) 05/16/17 19:05 Urine Glucose (UA) 250 mg/dL (NEGATIVE) H 05/16/17 19:05 Urine Ketones TRACE mg/dL (NEGATIVE) 05/16/17 19:05 Urine Blood NEGATIVE (NEGATIVE) 05/16/17 19:05 Urine Nitrate NEGATIVE (NEGATIVE) 05/16/17 19:05 Urine Bilirubin NEGATIVE (NEGATIVE) 05/16/17 19:05 Urine Urobilinogen 1.0 E.U./dL (0.2 - 1.0) 05/16/17 19:05 Ur Leukocyte Esterase NEGATIVE (NEGATIVE) 05/16/17 19:05 Urine RBC NONE SEEN /hpf (0-5) 05/16/17 19:05 Urine WBC NONE SEEN /hpf (0-5) 05/16/17 19:05 Ur Epithelial Cells NONE SEEN /lpf (FEW) 05/16/17 19:05 Urine Bacteria NONE SEEN /hpf (NONE SEEN) 05/16/17 19:05 - Physical Exam Vitals and I&O: Vital Signs Temp 97.5 F 05/18/17 11:42 Pulse 111 05/18/17 11:42 Resp 20 05/18/17 11:42 BP 128/94 05/18/17 11:42 Pulse Ox 95 05/18/17 11:42 Intake & Output 05/17/17 05/18/17 05/18/17 18:59 06:59 18:59 Intake Total 1000 340 Balance 1000 340 Weight (lbs) 69.309 kg Intake: Intake, IV Amount 1000 Sodium Chloride 0.9% 1, 1000 000 ml @ 60 mls/hr IV . [id number] [facility] Rx#:[id number] Oral 340 Other: # Voids 3 # Bowel Movements 0 Active Medications: Current Medications Acetaminophen/Hydrocodone Bitart ([place] 5mg/325mg) 1 tab PO Q6H PRN PRN Reason: Pain (Moderate) Stop: 07/15/17 23:54 Last Admin: 05/18/17 06:38 Dose: 1 tab Alprazolam (Xanax) 0.25 mg PO Q6HR PRN; Protocol PRN Reason: Anxiety Stop: 07/16/17 12:10 Last Admin: 05/18/17 11:05 Dose: 0.25 mg Digoxin (Lanoxin) 0.125 mg PO DAILY [facility] Stop: 07/16/17 12:14 Last Admin: 05/18/17 11:05 Dose: 0.125 mg Hydrochlorothiazide (Hctz) 12.5 mg PO DAILY [facility] Stop: 07/17/17 08:59 Last Admin: 05/18/17 11:04 Dose: 12.5 mg Sodium Chloride (Nacl 0.9%) 1,000 mls @ 60 mls/hr IV .[id number] [facility] Stop: 07/15/17 22:14 Last Admin: 05/17/17 21:37 Dose: 60 mls/hr Lactulose (Cephulac) 20 gm PO TID [facility] Stop: 07/17/17 13:59 Losartan Potassium (Cozaar) 100 mg PO DAILY [facility] Stop: 07/17/17 08:59 Last Admin: 05/18/17 11:05 Dose: 100 mg Magnesium Hydroxide (Milk Of Magnesia) 30 ml PO HS [facility]ILLY Stop: 07/16/17 20:59 Last Admin: 05/17/17 21:33 Dose: 30 ml Pantoprazole Sodium (Protonix) 40 mg IVP DAILY [facility] Stop: 07/16/17 12:29 Last Admin: 05/18/17 10:45 Dose: 40 mg Sodium Phosphate (Fleet Enema) 135 ml RC X1 ONE Stop: 05/18/17 13:54 Warfarin Sodium (Coumadin Per Pharmacy) 1 ea MC PRN PRN; Protocol PRN Reason: RX MONITORING Stop: 07/16/17 12:46 General: Alert HEENT: Atraumatic Neck: Supple Cardiovascular: Regular rate Lungs: Clear to auscultation Abdomen: Bowel sounds, Soft Extremities: Other (No edema, ) Neurological: Other (non ambulatory.) Skin: Other (warm and dry) Psych/Mental Status: Mental status NL Assessment/Plan - Assessment Assessment: Patient is awake, alert, calm, in no acute distress. Dx: Loss of muscle strength , A-fib, DM, COPD, GERD. - Plan Plan: Patient is continue with home meds, MRI ordered, Consult with neurology, cardio and GI requested. Will continue to monitor. Nutritional Asmnt/Malnutr-PDOC - Dietary Evaluation Malnutrition Findings (Please click <Entered> for more info): Nutritional Asmnt/Malnutrition Start: 05/17/17 12: 52 Text: Status: Complete Freq: Document 05/17/17 12:52 MMULMALINA (Rec: 05/17/17 13:15 [email or web address] SEGAL FN) Nutritional Asmnt/Malnutrition Patient General Information Nutritional Screening Consult Diagnosis syncope Pertinent Medical Hx/Surgical Hx Afib, CAD, HTN, COPD, Hiatal hernia, weakness, PVD Subjective Information Consult received for Diabetic, small skin tear, discoloration and no appetite to eat. Spoke with patient and family at bedside. She states she does not follow a pureed diet at home, she eats soft foods. She avoids all fish because she is allergic to shellfish. Missing teeth noted . She states appetite is poor but getting better. She does like Ensure/Boost. Only ate mashed potatoes and cream of wheat today. Current Diet Order/ Nutrition Support Pureed Patient / S.O Can Pertinent Medications lactulose, MOM, protonix, coumadin Pertinent Labs Glucose 140-244, magnesium 1.6 , Total bilirubin 2, ammonia 64, total protein 5.5, albumin 3.5 Nutritional Hx/Data Height 1.55 m Height (Calculated Centimeters) 154.9 Current Weight (lbs) 67.132 kg Weight (Calculated Kilograms) 67.1 Weight (Calculated Grams) 81049.7 [place] Body Weight 105 % [place] Body Weight 140 Body Mass Index (BMI) 27.9 Recent Weight Change No Weight Status Overweight GI Symptoms GI Symptoms Constipation Last BM None noted since admission Difficult in: None Food Allergies Yes: Shellfish Cultural/Ethnic/Buddhist Belief None indicated Usual diet at home Regular Skin Integrity/Comment: [place] 15, Skin tear Lower extremity Current %PO Poor (25-49%) Estimated Nutritional Goals BEE in Kcals: Using Current wt Calories/Kcals/Kg 67.2kg CBW (25-30 kcal/kg) Kcals Calculated ~9714-2133 kcal/day Protein: Using Current wt Protein g/k gm/kg Protein Calculated ~65 gm/day Fluid: ml ~0936-8918 ml/day (1 ml/kcal) Nutritional Problem 2. Problem Problem Altered GI function related to Etiology constipation aeb Signs/Symptoms: no BM since admission. 1. Problem Problem Inadequate oral itake related to Etiology decreased appetite, increased nutrient needs Signs/Symptoms: aeb meeting <50% of estimated nutrient needs Intervention/Recommendation Comments 1. Consider modifying diet from Pureed to soft with chopped meat due to patient preferences; states she would eat more if the food was not pureed. Add Boost pudding with meals to optimize nutrient intake. 2. Bowel regimen per MD; bowel movement may help with appetite. 3. If appetite still not improved, MD to consider appetite stimulant to help oral intake. 4. If POC glucose increases, consider modifying to 60 gm CCHO. 5. Consider MVI and Vitamin C due to impaired skin integrity . Expected Outcomes/Goals Expected Outcomes/Goals Oral intake to meet >75% of estimated nutrient needs, nutrition related labs normalize, weight stable, improved skin integrity.
[2017-05-18] MEDS ORDERED: Magnesium Citrate 1.75 GM/300 mL Bottle PO SCH (19:00)
[2017-05-18] MEDS: Magnesium Hydroxide (MOM) 30 mL UDC PO SCH (20:29)
[2017-05-19] MEDS: Diltiazem 30 mg Tab PO SCH (01:15)
[2017-05-19] MEDS: Hydrocodone/APAP 5mg/325mg Tab PO PRN ×3 (04:00→20:57)
[2017-05-19 06:01] LABS: % BASOPHILS 1.1 % (0.0-2.0); % EOSINOPHILS 2.1 % (0.0-5.0); % LYMPHOCYTES 15.6 % (20.0-50.0); % MONOCYTES 9.3 % (2.0-10.0); % NEUTROPHILS 71.9 % (40.0-80.0); BASOPHILE ABSOLUTE 0.1 Th/cumm (0-0.2); EOSINOPHILE ABSOLUTE 0.1 Th/cmm (0.1-0.4); HEMATOCRIT 32.7 % (41.0-60); HEMOGLOBIN 10.8 gm/dL (12-16); MEAN CELL VOLUME 89.1 fl (81-100); MEAN CORPUSCULAR HEMOGLOBIN 29.5 pg (27.0-31.0); MEAN CORPUSCULAR HGB CONC 33.1 pg (28.0-36.0); MEAN PLATELET VOLUME 8.1 fl; MONOCYTE ABSOLUTE 0.6 Th/cmm (0.3-1.0); NEUTROPHILE ABSOLUTE 4.8 Th/cmm (1.8-8.0); PLATELET COUNT 224 Th/cmm (150-400); RED BLOOD COUNT 3.67 Mil/cmm (3.80-5.20); RED CELL DISTRIBUTION WIDTH 13.7 % (11.5-20.0)
[2017-05-19 06:02] LABS: WHITE BLOOD COUNT 6.6 Th/cmm (4.8-10.8)
[2017-05-19 06:09] LABS: INR 2.34 (0.5-1.4); PROTHROMBIN TIME (TEST) 25.5 SECONDS (9.5-11.5)
[2017-05-19 06:17] LABS: ALB/GLOB RATIO 1.7 (1.0-1.8); ALBUMIN 3.4 gm/dL (3.7-5.3); ALKALINE PHOSPHATASE 43 U/L (34-104); ANION GAP 7.4 (7.0-16.0); BUN - UREA NITROGEN 6 mg/dL (7-25); CALCIUM SERUM 8.3 mg/dL (8.6-10.3); CARBON DIOXIDE 31.3 mEq/L (21.0-31.0); CHLORIDE 96 mEq/L (98-107); CREATININE - SERUM 0.4 mg/dL (0.6-1.2); GLUCOSE 156 mg/dL (70-105); LIPASE 3 U/L (11-82); POTASSIUM SERUM 3.7 mEq/L (3.5-5.1); SGOT 67 U/L (13-39); SGPT/ALT 51 U/L (7-52); SODIUM SERUM 131 mEq/L (136-145); TOTAL PROTEIN,SERUM 5.4 gm/dL (6.0-8.3)
[2017-05-19] MEDS: Lactulose 10 Gm/15 mL 30mL UDC PO SCH ×3 (09:00→20:56)
--- NOTE | 2017-05-19 09:11 | Diagnostic Imaging Report ---
Exam ultrasound examination the abdomen. HISTORY: Abnormal liver function tests. Findings: Real-time ultrasound examination abdomen performed multiple planes. The study demonstrates normal echogenicity liver parenchyma. The gallbladder is not seen. The common bile duct measures 4 mm. Pancreas poorly seen. The kidneys demonstrate no evidence of obstructive uropathy or nephrolithiasis. The right kidney measures 9.7 x 4 x 4.8 cm diameter. Left kidney measures 9 x 4.3 x 4 0.2 cm. The spleen is normal. No free fluid appreciated IMPRESSION: 1. Status post cholecystectomy. Limited study due to large amount of intra-abdominal bowel gas.
--- NOTE | 2017-05-19 09:28 | General Progress Note ---
Subjective - Review of Systems Service Date: 05/19/17 Events since last encounter: daughter claims she has dysphagia, coughs sometimes discussed large hiatal hernia which might result in aspiration Objective - Results Result Diagrams: 05/19/17 05:30 05/19/17 05:30 Recent Labs: Laboratory Last Values WBC 6.6 Th/cmm (4.8-10.8) D 05/19/17 05:30 RBC 3.67 Mil/cmm (3.80-5.20) L 05/19/17 05:30 Hgb 10.8 gm/dL (12-16) L 05/19/17 05:30 Hct 32.7 % (41.0-60) L 05/19/17 05:30 MCV 89.1 fl (81-100) 05/19/17 05:30 MCH 29.5 pg (27.0-31.0) 05/19/17 05:30 MCHC Differential 33.1 pg (28.0-36.0) 05/19/17 05:30 RDW 13.7 % (11.5-20.0) 05/19/17 05:30 Plt Count 224 Th/cmm (150-400) 05/19/17 05:30 MPV 8.1 fl 05/19/17 05:30 Neutrophils % 71.9 % (40.0-80.0) 05/19/17 05:30 Band Neutrophils % 6 % (0-10) 05/16/17 18:40 Lymphocytes % 15.6 % (20.0-50.0) L 05/19/17 05:30 Monocytes % 9.3 % (2.0-10.0) 05/19/17 05:30 Eosinophils % 2.1 % (0.0-5.0) 05/19/17 05:30 Basophils % 1.1 % (0.0-2.0) 05/19/17 05:30 Neutrophils (Manual) 84 % (40-80) H 05/16/17 18:40 Lymphocytes 7 % (20-50) L 05/16/17 18:40 Monocytes 3 % (2-10) 05/16/17 18:40 Eosinophils 0 % (0-5) 05/16/17 18:40 Basophils 0 % (0-3) 05/16/17 18:40 Platelet Estimate ADEQUATE (NORMAL) 05/16/17 18:40 Platelet Morphology NORMAL (NORMAL) 05/16/17 18:40 RBC Morph Micro Appear NORMAL (NORMAL) 05/16/17 18:40 ESR 26 mm/hr (0-30) 05/18/17 05:10 PT 25.5 SECONDS (9.5-11.5) H 05/19/17 05:30 INR 2.34 (0.5-1.4) H 05/19/17 05:30 Specimen Source arterial 05/16/17 19:27 Sample Site right radial 05/16/17 19:27 pH 7.50 (7.35-7.45) H 05/16/17 19:27 pCO2 50.0 mmHg (35.0-45.0) H 05/16/17 19:27 pO2 82.0 mmHg (80.0-100.0) 05/16/17 19:27 HCO3 35.7 mEq/L (20.0-26.0) H 05/16/17 19:27 Base Excess 13.8 mEq/L (-3.0-3.0) H 05/16/17 19:27 O2 Saturation 97.0 % (92.0-100.0) 05/16/17 19:27 Antonio Test positive 05/16/17 19:27 Vent Rate n/a 05/16/17 19:27 Inspired O2 28 05/16/17 19:27 Tidal Volume n/a 05/16/17 19:27 PEEP n/a 05/16/17 19:27 Pressure (ins/psv/peep) n/a 05/16/17 19:27 Critical Value ab cash room clerk 05/16/17 19:27 Sodium 131 mEq/L (136-145) L 05/19/17 05:30 Potassium 3.7 mEq/L (3.5-5.1) 05/19/17 05:30 Chloride 96 mEq/L (98-107) L 05/19/17 05:30 Carbon Dioxide 31.3 mEq/L (21.0-31.0) H 05/19/17 05:30 Anion Gap 7.4 (7.0-16.0) 05/19/17 05:30 BUN 6 mg/dL (7-25) L 05/19/17 05:30 Creatinine 0.4 mg/dL (0.6-1.2) L 05/19/17 05:30 Est GFR ( Amer) TNP 05/19/17 05:30 Est GFR (Non-Af Amer) TNP 05/19/17 05:30 BUN/Creatinine Ratio 15.0 05/19/17 05:30 Glucose 156 mg/dL (70-105) H 05/19/17 05:30 POC Glucose 147 MG/DL (70 - 105) H 05/17/17 00:14 Hemoglobin A1c % 7.3 % (4.0-6.0) H 05/16/17 18:40 Calcium 8.3 mg/dL (8.6-10.3) L 05/19/17 05:30 Magnesium 1.6 mg/dL (1.9-2.7) L 05/17/17 06:19 Total Bilirubin 2.0 mg/dL (0.3-1.0) H 05/19/17 05:30 AST 67 U/L (13-39) H 05/19/17 05:30 ALT 51 U/L (7-52) 05/19/17 05:30 Alkaline Phosphatase 43 U/L (34-104) 05/19/17 05:30 Ammonia 64 umol/L (16-53) H 05/17/17 08:00 Creatine Kinase 358 U/L (30-223) H 05/18/17 05:10 CK-MB (CK-2) 3.0 ng/mL (0.6-6.3) 05/18/17 05:10 Troponin I 0.04 ng/mL (0.01-0.05) 05/17/17 06:19 C-Reactive Protein 4.5 mg/dL (0.0-0.9) H 05/18/17 05:10 B-Natriuretic Peptide 181.0 pg/mL (5.0-100.0) H 05/16/17 18:40 Total Protein 5.4 gm/dL (6.0-8.3) L 05/19/17 05:30 Albumin 3.4 gm/dL (3.7-5.3) L 05/19/17 05:30 Globulin 2.0 gm/dL 05/19/17 05:30 Albumin/Globulin Ratio 1.7 (1.0-1.8) 05/19/17 05:30 Triglycerides 138 mg/dL (<150) 05/17/17 06:19 Cholesterol 124 mg/dL (<200) 05/17/17 06:19 LDL Cholesterol Direct 80 mg/dL (75-193) 05/17/17 06:19 HDL Cholesterol 32 mg/dL (23-92) 05/17/17 06:19 Amylase 38 U/L (29-103) 05/16/17 18:40 Lipase 3 U/L (11-82) L 05/19/17 05:30 TSH 4.02 uIU/ml (0.34-5.60) 05/18/17 05:10 Urine Source RANDOM 05/16/17 19:05 Urine Color YELLOW 05/16/17 19:05 Urine Clarity CLEAR (CLEAR) 05/16/17 19:05 Urine pH 8.0 (4.6 - 8.0) 05/16/17 19:05 Ur Specific [place] 1.015 (1.005-1.030) 05/16/17 19:05 Urine Protein NEGATIVE mg/dL (NEGATIVE) 05/16/17 19:05 Urine Glucose (UA) 250 mg/dL (NEGATIVE) H 05/16/17 19:05 Urine Ketones TRACE mg/dL (NEGATIVE) 05/16/17 19:05 Urine Blood NEGATIVE (NEGATIVE) 05/16/17 19:05 Urine Nitrate NEGATIVE (NEGATIVE) 05/16/17 19:05 Urine Bilirubin NEGATIVE (NEGATIVE) 05/16/17 19:05 Urine Urobilinogen 1.0 E.U./dL (0.2 - 1.0) 05/16/17 19:05 Ur Leukocyte Esterase NEGATIVE (NEGATIVE) 05/16/17 19:05 Urine RBC NONE SEEN /hpf (0-5) 05/16/17 19:05 Urine WBC NONE SEEN /hpf (0-5) 05/16/17 19:05 Ur Epithelial Cells NONE SEEN /lpf (FEW) 05/16/17 19:05 Urine Bacteria NONE SEEN /hpf (NONE SEEN) 05/16/17 19:05 - Physical Exam Vitals and I&O: Vital Signs Temp 97.4 F 05/19/17 08:00 Pulse 113 05/19/17 09:00 Resp 18 05/19/17 08:00 BP 118/68 05/19/17 09:00 Pulse Ox 97 05/19/17 08:00 Intake & Output 05/18/17 05/19/17 05/19/17 18:59 06:59 18:59 Intake Total 750 Balance 750 Weight (lbs) 68.946 kg 67.268 kg Intake: Oral 750 Other: # Voids 3 2 # Bowel Movements 1 2 Stool Characteristics Soft Active Medications: Current Medications Acetaminophen/Hydrocodone Bitart ([place] 5mg/325mg) 1 tab PO Q6H PRN PRN Reason: Pain (Moderate) Stop: 07/15/17 23:54 Last Admin: 05/19/17 04:00 Dose: 1 tab Alprazolam (Xanax) 0.25 mg PO Q6HR PRN; Protocol PRN Reason: Anxiety Stop: 07/16/17 12:10 Last Admin: 05/18/17 20:30 Dose: 0.25 mg Digoxin (Lanoxin) 0.125 mg PO DAILY [facility] Stop: 07/16/17 12:14 Last Admin: 05/19/17 08:58 Dose: 0.125 mg Hydrochlorothiazide (Hctz) 12.5 mg PO DAILY [facility] Stop: 07/17/17 08:59 Last Admin: 05/19/17 09:00 Dose: Not Given Sodium Chloride (Nacl 0.9%) 1,000 mls @ 60 mls/hr IV .[id number] [facility] Stop: 07/15/17 22:14 Last Admin: 05/17/17 21:37 Dose: 60 mls/hr Lactulose (Cephulac) 20 gm PO TID [facility] Stop: 07/17/17 13:59 Last Admin: 05/19/17 09:00 Dose: 20 gm Losartan Potassium (Cozaar) 100 mg PO DAILY [facility] Stop: 07/17/17 08:59 Last Admin: 05/19/17 09:00 Dose: Not Given Magnesium Hydroxide (Milk Of Magnesia) 30 ml PO HS [facility] Stop: 07/16/17 20:59 Last Admin: 05/18/17 20:29 Dose: 30 ml Mineral Oil (Mineral Oil 30 Ml) 30 ml PO QID PRN PRN Reason: Constipation Stop: 07/17/17 17:49 Pantoprazole Sodium (Protonix) 40 mg IVP DAILY [facility] Stop: 07/16/17 12:29 Last Admin: 05/19/17 09:01 Dose: 40 mg Warfarin Sodium (Coumadin Per Pharmacy) 1 ea [facility] PRN PRN; Protocol PRN Reason: RX MONITORING Stop: 07/16/17 12:46 Warfarin Sodium (Coumadin) 1 mg PO ONCE ONE Stop: 05/19/17 13:01 General: Alert HEENT: Atraumatic Neck: Supple Cardiovascular: Regular rate Lungs: Clear to auscultation Abdomen: Bowel sounds, Soft Extremities: Other (No edema, ) Neurological: Other (non ambulatory.) Skin: Other (warm and dry) Psych/Mental Status: Mental status NL Nutritional Asmnt/Malnutr-PDOC - Dietary Evaluation Malnutrition Findings (Please click <Entered> for more info): Nutritional Asmnt/Malnutrition Start: 05/17/17 12: 52 Text: Status: Complete Freq: Document 05/17/17 12:52 MMULHERN (Rec: 05/17/17 13:15 MMULHERN [id number]) Nutritional Asmnt/Malnutrition Patient General Information Nutritional Screening Consult Diagnosis syncope Pertinent Medical Hx/Surgical Hx Afib, CAD, HTN, COPD, Hiatal hernia, weakness, PVD Subjective Information Consult received for Diabetic, small skin tear, discoloration and no appetite to eat. Spoke with patient and family at bedside. She states she does not follow a pureed diet at home, she eats soft foods. She avoids all fish because she is allergic to shellfish. Missing teeth noted . She states appetite is poor but getting better. She does like Ensure/Boost. Only ate mashed potatoes and cream of wheat today. Current Diet Order/ Nutrition Support Pureed Patient / S.O Can Pertinent Medications lactulose, MOM, protonix, coumadin Pertinent Labs Glucose 140-244, magnesium 1.6 , Total bilirubin 2, ammonia 64, total protein 5.5, albumin 3.5 Nutritional Hx/Data Height 1.55 m Height (Calculated Centimeters) 154.9 Current Weight (lbs) 67.132 kg Weight (Calculated Kilograms) 67.1 Weight (Calculated Grams) 36968.7 [place] Body Weight 105 % [place] Body Weight 140 Body Mass Index (BMI) 27.9 Recent Weight Change No Weight Status Overweight GI Symptoms GI Symptoms Constipation Last BM None noted since admission Difficult in: None Food Allergies Yes: Shellfish Cultural/Ethnic/Jain Belief None indicated Usual diet at home Regular Skin Integrity/Comment: [place] 15, Skin tear Lower extremity Current %PO Poor (25-49%) Estimated Nutritional Goals BEE in Kcals: Using Current wt Calories/Kcals/Kg 67.2kg CBW (25-30 kcal/kg) Kcals Calculated ~7079-3936 kcal/day Protein: Using Current wt Protein g/k gm/kg Protein Calculated ~65 gm/day Fluid: ml ~7331-5389 ml/day (1 ml/kcal) Nutritional Problem 2. Problem Problem Altered GI function related to Etiology constipation aeb Signs/Symptoms: no BM since admission. 1. Problem Problem Inadequate oral itake related to Etiology decreased appetite, increased nutrient needs Signs/Symptoms: aeb meeting <50% of estimated nutrient needs Intervention/Recommendation Comments 1. Consider modifying diet from Pureed to soft with chopped meat due to patient preferences; states she would eat more if the food was not pureed. Add Boost pudding with meals to optimize nutrient intake. 2. Bowel regimen per MD; bowel movement may help with appetite. 3. If appetite still not improved, MD to consider appetite stimulant to help oral intake. 4. If POC glucose increases, consider modifying to 60 gm CCHO. 5. Consider MVI and Vitamin C due to impaired skin integrity . Expected Outcomes/Goals Expected Outcomes/Goals Oral intake to meet >75% of estimated nutrient needs, nutrition related labs normalize, weight stable, improved skin integrity.
[2017-05-19] MEDS: Magnesium Hydroxide (MOM) 30 mL UDC PO SCH (20:56)
[2017-05-20] MEDS: Hydrocodone/APAP 5mg/325mg Tab PO PRN ×3 (03:52→21:14)
--- NOTE | 2017-05-20 04:35 | Consultation ---
DATE OF CONSULTATION: 05/16/2017 HISTORY OF PRESENT ILLNESS: This is an 81-year-old female was seen and examined. The patient has multiple problems. It was noticed that the patient does have paroxysmal atrial fibrillation. Since admission, she has been in atrial fibrillation with moderate ventricular response. Also has history of diabetes type 2, history of hypertension, which is running little on the higher side. The patient has history of CHF, anemia, and abnormal liver function test. The patient denies any history of chest pain. No history of shortness of breath, no history of PND, no history of orthopnea, no history of cough, no history of fever, no history of hemoptysis, no history of seizures, no history of CVA, no history of hematuria, and no history of bleeding per rectum. PAST MEDICAL HISTORY: Usual childhood disease. No history of rheumatic fever. No history of scarlet fever. Other positives as mentioned above. FAMILY HISTORY: Atherosclerotic heart disease. SOCIAL HISTORY: Not a smoker. Not a drinker. PHYSICAL EXAMINATION: VITAL SIGNS: Blood pressure was 148/80 and heart rate was 86. SKIN: Normal. HEAD: Normocephalic. EYES: Conjunctivae were pink. There was no icterus in the eyes: Pupils reactive to light. NECK: There were no increased jugular venous distention, no thyromegaly, no lymphadenopathy. Carotids equal both sides. CHEST: Bilaterally symmetrical and moved well with respiration. Respiratory movements equal on both sides. Trachea was central. There was note of percussion. Breath sounds, few basilar rales. CARDIOVASCULAR SYSTEM: PMI not well localized and no positional thrill. No parasternal heave. S1 normal, S2 physiologic. There was no S3, no rub. ABDOMEN: Soft, no tenderness, no rigidity, no guarding, no organomegaly. Bowel sounds normal. EXTREMITIES: No calf tenderness. Pulses diminished. LABORATORY DATA: Reviewing the lab. WBC of 5.4, hemoglobin 11.1, hematocrit 32.7, and platelet count was 191. ____ normal. TSH was 4.02 ____. INR 1.40. Sodium 137, potassium 3.6, chloride 100, CO2 of 30.4, BUN 9, creatinine 0.5, and glucose 149. Hemoglobin A1c was 7.3. LDL cholesterol was 80, ammonia was 64. BNP was 181. IMPRESSION: Atrial fibrillation with moderate ventricular response, hypertension, controlled diabetes type 2, congestive heart failure, anemia, and abnormal liver function test. RECOMMENDATIONS: Agree with the present management so far. The patient is already on Coumadin and losartan. We will add statins and beta-carla. Follow with you as needed. JOB# [id number]
[2017-05-20 06:37] LABS: % BASOPHILS 0.2 % (0.0-2.0); % EOSINOPHILS 3.9 % (0.0-5.0); % LYMPHOCYTES 18.8 % (20.0-50.0); % MONOCYTES 9.6 % (2.0-10.0); % NEUTROPHILS 67.5 % (40.0-80.0); EOSINOPHILE ABSOLUTE 0.2 Th/cmm (0.1-0.4); HEMATOCRIT 32.1 % (41.0-60); HEMOGLOBIN 10.7 gm/dL (12-16); MEAN CELL VOLUME 89.3 fl (81-100); MEAN CORPUSCULAR HEMOGLOBIN 29.8 pg (27.0-31.0); MEAN CORPUSCULAR HGB CONC 33.3 pg (28.0-36.0); MEAN PLATELET VOLUME 8.5 fl; MONOCYTE ABSOLUTE 0.5 Th/cmm (0.3-1.0); NEUTROPHILE ABSOLUTE 3.5 Th/cmm (1.8-8.0); PLATELET COUNT 221 Th/cmm (150-400); RED BLOOD COUNT 3.59 Mil/cmm (3.80-5.20); RED CELL DISTRIBUTION WIDTH 13.3 % (11.5-20.0); WHITE BLOOD COUNT 5.2 Th/cmm (4.8-10.8)
[2017-05-20 07:04] LABS: ALB/GLOB RATIO 1.6 (1.0-1.8); ALBUMIN 3.3 gm/dL (3.7-5.3); ALKALINE PHOSPHATASE 58 U/L (34-104); ANION GAP 8.2 (7.0-16.0); BILIRUBIN,TOTAL 1.3 mg/dL (0.3-1.0); BUN - UREA NITROGEN 7 mg/dL (7-25); CALCIUM SERUM 8.5 mg/dL (8.6-10.3); CARBON DIOXIDE 31.3 mEq/L (21.0-31.0); CHLORIDE 96 mEq/L (98-107); CREATININE - SERUM 0.4 mg/dL (0.6-1.2); GLUCOSE 146 mg/dL (70-105); LIPASE 6 U/L (11-82); POTASSIUM SERUM 3.5 mEq/L (3.5-5.1); SGOT 98 U/L (13-39); SGPT/ALT 92 U/L (7-52); SODIUM SERUM 132 mEq/L (136-145); TOTAL PROTEIN,SERUM 5.4 gm/dL (6.0-8.3)
[2017-05-20 07:06] LABS: INR 3.41 (0.5-1.4); PROTHROMBIN TIME (TEST) 37.9 SECONDS (9.5-11.5)
[2017-05-20 07:08] LABS: ANION GAP 8.7 (7.0-16.0); BUN - UREA NITROGEN 7 mg/dL (7-25); CALCIUM SERUM 8.4 mg/dL (8.6-10.3); CARBON DIOXIDE 30.9 mEq/L (21.0-31.0); CHLORIDE 97 mEq/L (98-107); CREATININE - SERUM 0.4 mg/dL (0.6-1.2); GLUCOSE 152 mg/dL (70-105); MAGNESIUM 2.2 mg/dL (1.9-2.7); POTASSIUM SERUM 3.6 mEq/L (3.5-5.1); SODIUM SERUM 133 mEq/L (136-145)
[2017-05-20] MEDS: Lactulose 10 Gm/15 mL 30mL UDC PO SCH ×3 (08:12→22:18)
[2017-05-20] MEDS: Atorvastatin Calcium 10 MG TAB PO SCH (08:13)
[2017-05-20] MEDS ORDERED: Metoclopramide 5 mg/mL 2mL Vial IVP PRN (09:51)
--- NOTE | 2017-05-20 14:02 | Cardiology ---
05/17/2017 ECHOCARDIOGRAM REPORT The patient of Dr. Mccurdy. M-MODE ECHOCARDIOGRAM: Mitral valve, anterior leaflet of mitral valve shows normal excursion, EF velocity. Posterior leaflet of the mitral valve shows normal excursion. Left ventricular posterior wall shows increased thickness, normal excursion. Interventricular septum shows increased thickness, normal excursion, hypertrophy of the left ventricle, ejection fraction 72%. Left atrium normal. Aortic root shows normal dimension, normal excursion of aortic leaflets. CONCLUSION: Hypertrophy of the left ventricle, ejection fraction 72%. 2D ECHO: Long axis view show normal size left ventricle with hypertrophy of the left ventricle. Left atrium normal. Aortic root shows normal dimension, normal excursion of aortic leaflets. Short axis view of mitral valve normal. Short axis view of aortic valve normal. Apical four chamber view showed normal sized left ventricle, left atrium, right ventricle, right atrium, tricuspid and mitral valve. Ejection fraction 72%. CONCLUSION: Normal 2D echo, ejection fraction 72%. Doppler study shows mild mitral regurgitation, moderate tricuspid regurgitation, trace pulmonary regurgitation. [facility]# [id number]
--- NOTE | 2017-05-20 14:55 | Diagnostic Imaging Report ---
MRI thoracic spine HISTORY: Lower extremity weakness Multiple MR sequences were obtained the sagittal and axial planes. The exam demonstrates compression involving the bodies of T8, T9, T10, and T11. Mild compression also involves the bodies of T11 and T12. Alignment is maintained. No significant extradural abnormalities. Bone marrow exhibits normal signal intensity. No intramedullary abnormality seen within the thoracic spinal cord. Incidentally noted is question of bilateral pleural effusions. There also question of dilatation of the right renal collecting system. An ultrasound exam would provide additional assessment if needed. IMPRESSION: 1. Compression involving multiple mid and lower thoracic vertebral bodies as noted above. 2. No significant extradural abnormalities 3. Bilateral pleural effusions 4. Dilatation of the right renal collecting system. If necessary, correlation with an ultrasound exam or CT exam would provide additional assessment.
[2017-05-20] MEDS: Diltiazem 30 mg Tab PO SCH (17:33)
[2017-05-20] MEDS: Sodium Chloride 0.9% 1,000 ML IV SCH (21:18)
--- NOTE | 2017-05-20 22:14 | Progress Notes ---
DATE: 05/20/2017 SUBJECTIVE: The patient is awake and alert. She is feeling much better today. She is moving her legs more firmly about the bedside and that the legs have more movement than before. The patient is still on and off confused. OBJECTIVE: VITAL SIGNS: Temperature 98.2, blood pressure 125/68, pulse is 70. NECK: Supple. No neck bruits. HEART: Sounds S1 and S2. LUNGS: Clear. NEUROLOGICALLY: The patient will answer questions, but still confused. She lifts both the arms up. The patient today able to lift her legs off the bed. Reflex is about -1 in upper extremity and very difficult to get the lower extremity. 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 The patient's CT scan of the head, extensive cerebral atrophy. Old lacunar infarction. Some white matter changes, but no acute process. LABORATORIES: WBC 5.2, hemoglobin 10.7, INR is 3.41. Sodium 132. Ammonia 64. CPK slowly coming down, initially was 893, is down to 358. TSH is 4.02. C-reactive protein is 4.5. Sed rate is 26. IMPRESSION: 1. Weakness in leg gradually better. 2. Rhabdomyolysis, improving with CPK getter better. 3. Possible neuropathy. 4. Paraparesis, gradually improving. PLAN: The patient to have physical therapy. The patient should followup outpatient with neurology for further workup with neuropathy, possible myopathy. JOB# [id number]
[2017-05-20] MEDS: Magnesium Hydroxide (MOM) 30 mL UDC PO SCH (22:18)
[2017-05-21 02:17] LABS: FOLIC ACID 17.6 ng/mL (>3.0)
[2017-05-21] MEDS: Hydrocodone/APAP 5mg/325mg Tab PO PRN ×2 (03:43→15:18)
[2017-05-21 07:04] LABS: % BASOPHILS 0.9 % (0.0-2.0); % EOSINOPHILS 2.9 % (0.0-5.0); % LYMPHOCYTES 15.6 % (20.0-50.0); % MONOCYTES 10.9 % (2.0-10.0); % NEUTROPHILS 69.7 % (40.0-80.0); BASOPHILE ABSOLUTE 0.1 Th/cumm (0-0.2); EOSINOPHILE ABSOLUTE 0.2 Th/cmm (0.1-0.4); HEMATOCRIT 30.7 % (41.0-60); HEMOGLOBIN 10.2 gm/dL (12-16); LYMPHOCYTE ABSOLUTE 0.9 Th/cmm (1.5-3.0); MEAN CELL VOLUME 89.2 fl (81-100); MEAN CORPUSCULAR HEMOGLOBIN 29.7 pg (27.0-31.0); MEAN CORPUSCULAR HGB CONC 33.3 pg (28.0-36.0); MEAN PLATELET VOLUME 7.9 fl; MONOCYTE ABSOLUTE 0.6 Th/cmm (0.3-1.0); NEUTROPHILE ABSOLUTE 3.9 Th/cmm (1.8-8.0); PLATELET COUNT 234 Th/cmm (150-400); RED BLOOD COUNT 3.44 Mil/cmm (3.80-5.20); RED CELL DISTRIBUTION WIDTH 13.4 % (11.5-20.0); WHITE BLOOD COUNT 5.7 Th/cmm (4.8-10.8)
[2017-05-21 07:13] LABS: INR 3.27 (0.5-1.4); PROTHROMBIN TIME (TEST) 36.2 SECONDS (9.5-11.5)
[2017-05-21 07:14] LABS: ANION GAP 6.7 (7.0-16.0); BUN - UREA NITROGEN 7 mg/dL (7-25); CALCIUM SERUM 8.4 mg/dL (8.6-10.3); CHLORIDE 97 mEq/L (98-107); CREATININE - SERUM 0.4 mg/dL (0.6-1.2); GLUCOSE 144 mg/dL (70-105); POTASSIUM SERUM 3.7 mEq/L (3.5-5.1); SODIUM SERUM 133 mEq/L (136-145)
[2017-05-21] MEDS: Diltiazem 30 mg Tab PO SCH ×3 (07:26→17:51)
[2017-05-21] MEDS ORDERED: Bismuth Subsalicylate 236mL PO PRN (07:43)
[2017-05-21 08:08] LABS: ALDOLASE 8.4 U/L (3.3-10.3); T4 FREE 1.41 ng/dL (0.82-1.77)
[2017-05-21] MEDS: Lactulose 10 Gm/15 mL 30mL UDC PO SCH ×3 (09:07→21:15)
[2017-05-21] MEDS: Atorvastatin Calcium 10 MG TAB PO SCH (09:09)
[2017-05-21] MEDS ORDERED: Diatrizoate Meglumine/Diatri 30 mL Sol PO ONE (11:30)
--- NOTE | 2017-05-21 12:57 | GI Progress Note ---
Subjective - Review of Systems Subjective: NO EVENTS Objective - Results Result Diagrams: 05/21/17 06:48 05/21/17 06:48 Recent Labs: Laboratory Last Values WBC 5.7 Th/cmm (4.8-10.8) 05/21/17 06:48 RBC 3.44 Mil/cmm (3.80-5.20) L 05/21/17 06:48 Hgb 10.2 gm/dL (12-16) L 05/21/17 06:48 Hct 30.7 % (41.0-60) L 05/21/17 06:48 MCV 89.2 fl (81-100) 05/21/17 06:48 MCH 29.7 pg (27.0-31.0) 05/21/17 06:48 MCHC Differential 33.3 pg (28.0-36.0) 05/21/17 06:48 RDW 13.4 % (11.5-20.0) 05/21/17 06:48 Plt Count 234 Th/cmm (150-400) 05/21/17 06:48 MPV 7.9 fl 05/21/17 06:48 Neutrophils % 69.7 % (40.0-80.0) 05/21/17 06:48 Band Neutrophils % 6 % (0-10) 05/16/17 18:40 Lymphocytes % 15.6 % (20.0-50.0) L 05/21/17 06:48 Monocytes % 10.9 % (2.0-10.0) H 05/21/17 06:48 Eosinophils % 2.9 % (0.0-5.0) 05/21/17 06:48 Basophils % 0.9 % (0.0-2.0) 05/21/17 06:48 Neutrophils (Manual) 84 % (40-80) H 05/16/17 18:40 Lymphocytes 7 % (20-50) L 05/16/17 18:40 Monocytes 3 % (2-10) 05/16/17 18:40 Eosinophils 0 % (0-5) 05/16/17 18:40 Basophils 0 % (0-3) 05/16/17 18:40 Platelet Estimate ADEQUATE (NORMAL) 05/16/17 18:40 Platelet Morphology NORMAL (NORMAL) 05/16/17 18:40 RBC Morph Micro Appear NORMAL (NORMAL) 05/16/17 18:40 ESR 26 mm/hr (0-30) 05/18/17 05:10 PT 36.2 SECONDS (9.5-11.5) H 05/21/17 06:48 INR 3.27 (0.5-1.4) H 05/21/17 06:48 Specimen Source arterial 05/16/17 19:27 Sample Site right radial 05/16/17 19:27 pH 7.50 (7.35-7.45) H 05/16/17 19:27 pCO2 50.0 mmHg (35.0-45.0) H 05/16/17 19:27 pO2 82.0 mmHg (80.0-100.0) 05/16/17 19:27 HCO3 35.7 mEq/L (20.0-26.0) H 05/16/17 19:27 Base Excess 13.8 mEq/L (-3.0-3.0) H 05/16/17 19:27 O2 Saturation 97.0 % (92.0-100.0) 05/16/17 19:27 Antonio Test positive 05/16/17 19:27 Vent Rate n/a 05/16/17 19:27 Inspired O2 28 05/16/17 19:27 Tidal Volume n/a 05/16/17 19:27 PEEP n/a 05/16/17 19:27 Pressure (ins/psv/peep) n/a 05/16/17 19:27 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 Value ab automotive 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 05/16/17 19:27 Sodium 133 mEq/L (136-145) L 05/21/17 06:48 Potassium 3.7 mEq/L (3.5-5.1) 05/21/17 06:48 Chloride 97 mEq/L (98-107) L 05/21/17 06:48 Carbon Dioxide 33.0 mEq/L (21.0-31.0) H 05/21/17 06:48 Anion Gap 6.7 (7.0-16.0) L 05/21/17 06:48 BUN 7 mg/dL (7-25) 05/21/17 06:48 Creatinine 0.4 mg/dL (0.6-1.2) L 05/21/17 06:48 Est GFR ( Amer) TNP 05/21/17 06:48 Est GFR (Non-Af Amer) TNP 05/21/17 06:48 BUN/Creatinine Ratio 17.5 05/21/17 06:48 Glucose 144 mg/dL (70-105) H 05/21/17 06:48 POC Glucose 147 MG/DL (70 - 105) H 05/17/17 00:14 Hemoglobin A1c % 7.3 % (4.0-6.0) H 05/16/17 18:40 Calcium 8.4 mg/dL (8.6-10.3) L 05/21/17 06:48 Magnesium 2.2 mg/dL (1.9-2.7) 05/20/17 05:20 Total Bilirubin 1.3 mg/dL (0.3-1.0) H 05/20/17 05:20 AST 98 U/L (13-39) H 05/20/17 05:20 ALT 92 U/L (7-52) H 05/20/17 05:20 Alkaline Phosphatase 58 U/L (34-104) 05/20/17 05:20 Ammonia 64 umol/L (16-53) H 05/17/17 08:00 Creatine Kinase 358 U/L (30-223) H 05/18/17 05:10 CK-MB (CK-2) 3.0 ng/mL (0.6-6.3) 05/18/17 05:10 Troponin I 0.04 ng/mL (0.01-0.05) 05/17/17 06:19 C-Reactive Protein 4.5 mg/dL (0.0-0.9) H 05/18/17 05:10 B-Natriuretic Peptide 181.0 pg/mL (5.0-100.0) H 05/16/17 18:40 Total Protein 5.4 gm/dL (6.0-8.3) L 05/20/17 05:20 Albumin 3.3 gm/dL (3.7-5.3) L 05/20/17 05:20 Globulin 2.1 gm/dL 05/20/17 05:20 Albumin/Globulin Ratio 1.6 (1.0-1.8) 05/20/17 05:20 Triglycerides 138 mg/dL (<150) 05/17/17 06:19 Cholesterol 124 mg/dL (<200) 05/17/17 06:19 LDL Cholesterol Direct 80 mg/dL (75-193) 05/17/17 06:19 HDL Cholesterol 32 mg/dL (23-92) 05/17/17 06:19 Amylase 38 U/L (29-103) 05/16/17 18:40 Lipase 6 U/L (11-82) L 05/20/17 05:20 Aldolase 8.4 U/L (3.3-10.3) 05/18/17 05:10 Whole Bld Vitamin B1 100.1 nmol/L (66.5-200.0) 05/17/17 08:00 Vitamin B12 423 pg/mL (232-1245) 05/18/17 05:10 Folic Acid 17.6 ng/mL (>3.0) 05/18/17 05:10 Free T4 1.41 ng/dL (0.82-1.77) 05/18/17 05:10 TSH 4.02 uIU/ml (0.34-5.60) 05/18/17 05:10 Urine Source RANDOM 05/16/17 19:05 Urine Color YELLOW 05/16/17 19:05 Urine Clarity CLEAR (CLEAR) 05/16/17 19:05 Urine pH 8.0 (4.6 - 8.0) 05/16/17 19:05 Ur Specific [place] 1.015 (1.005-1.030) 05/16/17 19:05 Urine Protein NEGATIVE mg/dL (NEGATIVE) 05/16/17 19:05 Urine Glucose (UA) 250 mg/dL (NEGATIVE) H 05/16/17 19:05 Urine Ketones TRACE mg/dL (NEGATIVE) 05/16/17 19:05 Urine Blood NEGATIVE (NEGATIVE) 05/16/17 19:05 Urine Nitrate NEGATIVE (NEGATIVE) 05/16/17 19:05 Urine Bilirubin NEGATIVE (NEGATIVE) 05/16/17 19:05 Urine Urobilinogen 1.0 E.U./dL (0.2 - 1.0) 05/16/17 19:05 Ur Leukocyte Esterase NEGATIVE (NEGATIVE) 05/16/17 19:05 Urine RBC NONE SEEN /hpf (0-5) 05/16/17 19:05 Urine WBC NONE SEEN /hpf (0-5) 05/16/17 19:05 Ur Epithelial Cells NONE SEEN /lpf (FEW) 05/16/17 19:05 Urine Bacteria NONE SEEN /hpf (NONE SEEN) 05/16/17 19:05 - Physical Exam Vitals and I&O: Vital Signs Temp 97.8 F 05/21/17 08:31 Pulse 98 05/21/17 09:08 Resp 20 05/21/17 08:40 BP 137/73 05/21/17 09:08 Pulse Ox 96 05/21/17 08:40 Intake & Output 05/20/17 05/21/17 05/21/17 18:59 06:59 18:59 Intake Total 300 Output Total 0 Balance 300 Weight (lbs) 67.132 kg 67.132 kg Intake: Oral 300 Output: Stool 0 Other: # Voids 3 # Bowel Movements 1 Stool Characteristics Soft Active Medications: Current Medications Acetaminophen/Hydrocodone Bitart ([place] 5mg/325mg) 1 tab PO Q6H PRN PRN Reason: Pain (Moderate) Stop: 07/15/17 23:54 Last Admin: 05/21/17 03:43 Dose: 1 tab Alprazolam (Xanax) 0.25 mg PO Q6HR PRN; Protocol PRN Reason: Anxiety Stop: 07/16/17 12:10 Last Admin: 05/21/17 03:43 Dose: 0.25 mg Atorvastatin Calcium (Lipitor) 10 mg PO DAILY [facility] PRN Reason: Protocol Stop: 07/19/17 08:59 Last Admin: 05/21/17 09:09 Dose: 10 mg Bismuth Subsalicylate (Pepto-Bismol) 30 ml PO Q4HR PRN PRN Reason: GI DISTRESS Stop: 07/20/17 07:42 Carvedilol (Coreg) 3.125 mg PO BID [facility] Stop: 07/19/17 08:59 Last Admin: 05/21/17 09:07 Dose: 3.125 mg Carvedilol (Coreg) 6.25 mg PO DAILY [facility] Stop: 07/20/17 08:59 Last Admin: 05/21/17 09:08 Dose: 6.25 mg Digoxin (Lanoxin) 0.125 mg PO DAILY [facility] Stop: 07/16/17 12:14 Last Admin: 05/21/17 09:08 Dose: 0.125 mg Diltiazem HCl (Cardizem) 60 mg PO Q6HR [facility] Stop: 07/19/17 17:59 Last Admin: 05/21/17 07:26 Dose: Not Given Hydrochlorothiazide (Hctz) 12.5 mg PO DAILY [facility] Stop: 07/17/17 08:59 Last Admin: 05/21/17 09:07 Dose: 12.5 mg Sodium Chloride (Nacl 0.9%) 1,000 mls @ 60 mls/hr IV .[id number] [facility] Stop: 07/15/17 22:14 Last Admin: 05/20/17 21:18 Dose: 60 mls/hr Lactulose (Cephulac) 20 gm PO TID [facility] Stop: 07/17/17 13:59 Last Admin: 05/21/17 09:07 Dose: 20 gm Losartan Potassium (Cozaar) 100 mg PO DAILY [facility] Stop: 07/17/17 08:59 Last Admin: 05/21/17 09:07 Dose: 100 mg Magnesium Hydroxide (Milk Of Magnesia) 30 ml PO HS [facility] Stop: 07/16/17 20:59 Last Admin: 05/20/17 22:18 Dose: Not Given Metoclopramide HCl (Reglan) 5 mg IVP Q8HR PRN PRN Reason: Abdominal Pain Stop: 07/19/17 09:50 Mineral Oil (Mineral Oil 30 Ml) 30 ml PO QID PRN PRN Reason: Constipation Stop: 07/17/17 17:49 Pantoprazole Sodium (Protonix) 40 mg IVP DAILY [facility] Stop: 07/16/17 12:29 Last Admin: 05/21/17 08:42 Dose: 40 mg Warfarin Sodium (Coumadin Per Pharmacy) 1 ea [facility] PRN PRN; Protocol PRN Reason: RX MONITORING Stop: 07/16/17 12:46 General: Alert HEENT: Atraumatic Neck: Supple Cardiovascular: Regular rate Lungs: Clear to auscultation Abdomen: Bowel sounds, Soft Extremities: Other (No edema, ) Neurological: Other (non ambulatory.) Skin: Other (warm and dry) Psych/Mental Status: Mental status NL Assessment/Plan - Assessment Assessment: 81 YO FEMALE WITH HIATAL HERNIA ELEVATED LFTS BRITTANY SHOWED S/P JEANNINE 1.AWAIT UGI SERIES 2.CHECK LFTS 3.CONSIDER MRCP 4.WILL NEED [facility]ERRAL [facility]
[2017-05-21 13:29] LABS: ALB/GLOB RATIO 1.6 (1.0-1.8); ALBUMIN 3.2 gm/dL (3.7-5.3); BILIRUBIN,DIRECT 0.37 mg/dL (0.0-0.2); BILIRUBIN,TOTAL 1.1 mg/dL (0.3-1.0); TOTAL PROTEIN,SERUM 5.2 gm/dL (6.0-8.3)
--- NOTE | 2017-05-21 13:47 | Diagnostic Imaging Report ---
MRI cervical spine HISTORY: Lower extremity weakness Multiple MRI sequences were obtained in the sagittal and axial planes. The exam is severely limited and compromised technically due to difficulty in patient positioning. The exam of the C3-4 level demonstrates a minimal (less than 2 mm) extradural density in indentation on the anterior subarachnoid space that may be related to small spur formation or a minimal central disc protrusion. No other extradural abnormalities are seen through the cervical region. There is loss of normal signal intensity from the disc nuclei at all levels reflecting degenerative change. Alignment is normal. No intramedullary abnormality seen within the cervical spinal cord. The cerebellar tonsils are in a normal position. Bone marrow exhibits normal signal intensity with no focal lesions. IMPRESSION: 1. Technically compromised exam due to difficulty in patient positioning 2. Minimal extradural indentation C3-4 that may reflect small spur formation or a minimal central disc protrusion. 3. Evidence of degenerative disc disease at all levels. 4. No other definite abnormalities
--- NOTE | 2017-05-21 14:30 | Diagnostic Imaging Report ---
Upper GI limited History: Pain Comparison: CT abdomen and pelvis on 05/16/2017 Technique/procedure: Egg Worker view demonstrates gas-filled loops of bowel in a nonspecific pattern. There is evidence of prior cholecystectomy. Degenerative changes of the spine are noted. Oral contrast was administered and multiple static fluoroscopic images were obtained. The gastric rugal folds are within normal limits. A moderate size hiatal hernia is noted. Assessment for focal lesions is limited on this exam. Nondilated stomach is noted with transit of contrast into the small bowel. There is probable small amount of gastroesophageal reflux. IMPRESSION: Limited exam demonstrating a moderate-sized hiatal hernia. Probable small amount of gastroesophageal reflux.
[2017-05-21] MEDS: Sodium Chloride 0.9% 1,000 ML IV SCH (15:13)
--- NOTE | 2017-05-21 16:07 | Progress Notes ---
DATE: 05/21/2017 SUBJECTIVE: The patient awake. Still weakness in the legs, is able to lift them more than before, but still not back to normal, according to her. OBJECTIVE: VITAL SIGNS: Temperature 98.6, blood pressure 130/70, pulse is 72. NECK: Supple. HEART: Normal heart sounds. NEUROLOGIC: The patient is awake. Confused, but will answer my questions. HEENT: Pupils react to light. No facial weakness. EXTREMITIES: Motor upper extremities about 4/5. Legs, she is just about able to lift them off the bed. But still weak, able to about 3, may be 3+. Reflexes about -1 in upper extremity, and lower extremity none. DIAGNOSTIC STUDIES: The patient's MRI thoracic spine, no cord compression. CT scan head, extensive atrophy. LABORATORY DATA: Noted. IMPRESSION: 1. Weakness of legs, gradually getting better, but still not normal. 2. We will plan to go ahead and do a CT scan of the cervical spine. I had ordered an MRI of the cervical spine that has not been done. 3. The patient's rhabdomyolysis improving. 4. Neuropathy. 5. Paraparesis. 6. Atrial fibrillation. 7. Diabetes. 8. Chronic obstructive pulmonary disease. PLAN: CT scan of the cervical spine. Physical therapy. JOB# [id number]
[2017-05-21] MEDS: Magnesium Hydroxide (MOM) 30 mL UDC PO SCH (22:44)
[2017-05-22 07:10] LABS: % BASOPHILS 0.1 % (0.0-2.0); % EOSINOPHILS 7.5 % (0.0-5.0); % LYMPHOCYTES 19.5 % (20.0-50.0); % NEUTROPHILS 65.9 % (40.0-80.0); EOSINOPHILE ABSOLUTE 0.4 Th/cmm (0.1-0.4); HEMOGLOBIN 10.5 gm/dL (12-16); LYMPHOCYTE ABSOLUTE 1.1 Th/cmm (1.5-3.0); MEAN CELL VOLUME 88.9 fl (81-100); MEAN CORPUSCULAR HGB CONC 33.7 pg (28.0-36.0); MONOCYTE ABSOLUTE 0.4 Th/cmm (0.3-1.0); NEUTROPHILE ABSOLUTE 3.9 Th/cmm (1.8-8.0); PLATELET COUNT 199 Th/cmm (150-400); RED BLOOD COUNT 3.49 Mil/cmm (3.80-5.20); RED CELL DISTRIBUTION WIDTH 13.5 % (11.5-20.0); WHITE BLOOD COUNT 5.8 Th/cmm (4.8-10.8)
--- NOTE | 2017-05-22 07:29 | General Progress Note ---
Subjective - Review of Systems Service Date: 05/22/17 Events since last encounter: denies pain/vomiting Objective - Results Result Diagrams: 05/22/17 06:40 05/21/17 06:48 Recent Labs: Laboratory Last Values WBC 5.8 Th/cmm (4.8-10.8) 05/22/17 06:40 RBC 3.49 Mil/cmm (3.80-5.20) L 05/22/17 06:40 Hgb 10.5 gm/dL (12-16) L 05/22/17 06:40 Hct 31.0 % (41.0-60) L 05/22/17 06:40 MCV 88.9 fl (81-100) 05/22/17 06:40 MCH 30.0 pg (27.0-31.0) 05/22/17 06:40 MCHC Differential 33.7 pg (28.0-36.0) 05/22/17 06:40 RDW 13.5 % (11.5-20.0) 05/22/17 06:40 Plt Count 199 Th/cmm (150-400) 05/22/17 06:40 MPV 9.0 fl 05/22/17 06:40 Neutrophils % 65.9 % (40.0-80.0) 05/22/17 06:40 Band Neutrophils % 6 % (0-10) 05/16/17 18:40 Lymphocytes % 19.5 % (20.0-50.0) L 05/22/17 06:40 Monocytes % 7.0 % (2.0-10.0) 05/22/17 06:40 Eosinophils % 7.5 % (0.0-5.0) H 05/22/17 06:40 Basophils % 0.1 % (0.0-2.0) 05/22/17 06:40 Neutrophils (Manual) 84 % (40-80) H 05/16/17 18:40 Lymphocytes 7 % (20-50) L 05/16/17 18:40 Monocytes 3 % (2-10) 05/16/17 18:40 Eosinophils 0 % (0-5) 05/16/17 18:40 Basophils 0 % (0-3) 05/16/17 18:40 Platelet Estimate ADEQUATE (NORMAL) 05/16/17 18:40 Platelet Morphology NORMAL (NORMAL) 05/16/17 18:40 RBC Morph Micro Appear NORMAL (NORMAL) 05/16/17 18:40 ESR 26 mm/hr (0-30) 05/18/17 05:10 PT 36.2 SECONDS (9.5-11.5) H 05/21/17 06:48 INR 3.27 (0.5-1.4) H 05/21/17 06:48 Specimen Source arterial 05/16/17 19:27 Sample Site right radial 05/16/17 19:27 pH 7.50 (7.35-7.45) H 05/16/17 19:27 pCO2 50.0 mmHg (35.0-45.0) H 05/16/17 19:27 pO2 82.0 mmHg (80.0-100.0) 05/16/17 19:27 HCO3 35.7 mEq/L (20.0-26.0) H 05/16/17 19:27 Base Excess 13.8 mEq/L (-3.0-3.0) H 05/16/17 19:27 O2 Saturation 97.0 % (92.0-100.0) 05/16/17 19:27 Antonio Test positive 05/16/17 19:27 Vent Rate n/a 05/16/17 19:27 Inspired O2 28 05/16/17 19:27 Tidal Volume n/a 05/16/17 19:27 PEEP n/a 05/16/17 19:27 Pressure (ins/psv/peep) n/a 05/16/17 19:27 Critical Value ab director of teacher education 05/16/17 19:27 Sodium 133 mEq/L (136-145) L 05/21/17 06:48 Potassium 3.7 mEq/L (3.5-5.1) 05/21/17 06:48 Chloride 97 mEq/L (98-107) L 05/21/17 06:48 Carbon Dioxide 33.0 mEq/L (21.0-31.0) H 05/21/17 06:48 Anion Gap 6.7 (7.0-16.0) L 05/21/17 06:48 BUN 7 mg/dL (7-25) 05/21/17 06:48 Creatinine 0.4 mg/dL (0.6-1.2) L 05/21/17 06:48 Est GFR ( Amer) TNP 05/21/17 06:48 Est GFR (Non-Af Amer) TNP 05/21/17 06:48 BUN/Creatinine Ratio 17.5 05/21/17 06:48 Glucose 144 mg/dL (70-105) H 05/21/17 06:48 POC Glucose 147 MG/DL (70 - 105) H 05/17/17 00:14 Hemoglobin A1c % 7.3 % (4.0-6.0) H 05/16/17 18:40 Calcium 8.4 mg/dL (8.6-10.3) L 05/21/17 06:48 Magnesium 2.2 mg/dL (1.9-2.7) 05/20/17 05:20 Total Bilirubin 1.1 mg/dL (0.3-1.0) H 05/21/17 06:48 Direct Bilirubin 0.37 mg/dL (0.0-0.2) H 05/21/17 06:48 AST 36 U/L (13-39) 05/21/17 06:48 ALT 58 U/L (7-52) H 05/21/17 06:48 Alkaline Phosphatase 51 U/L (34-104) 05/21/17 06:48 Ammonia 64 umol/L (16-53) H 05/17/17 08:00 Creatine Kinase 358 U/L (30-223) H 05/18/17 05:10 CK-MB (CK-2) 3.0 ng/mL (0.6-6.3) 05/18/17 05:10 Troponin I 0.04 ng/mL (0.01-0.05) 05/17/17 06:19 C-Reactive Protein 4.5 mg/dL (0.0-0.9) H 05/18/17 05:10 B-Natriuretic Peptide 181.0 pg/mL (5.0-100.0) H 05/16/17 18:40 Total Protein 5.2 gm/dL (6.0-8.3) L 05/21/17 06:48 Albumin 3.2 gm/dL (3.7-5.3) L 05/21/17 06:48 Globulin 2.0 gm/dL 05/21/17 06:48 Albumin/Globulin Ratio 1.6 (1.0-1.8) 05/21/17 06:48 Triglycerides 138 mg/dL (<150) 05/17/17 06:19 Cholesterol 124 mg/dL (<200) 05/17/17 06:19 LDL Cholesterol Direct 80 mg/dL (75-193) 05/17/17 06:19 HDL Cholesterol 32 mg/dL (23-92) 05/17/17 06:19 Amylase 38 U/L (29-103) 05/16/17 18:40 Lipase 6 U/L (11-82) L 05/20/17 05:20 Aldolase 8.4 U/L (3.3-10.3) 05/18/17 05:10 Whole Bld Vitamin B1 100.1 nmol/L (66.5-200.0) 05/17/17 08:00 Vitamin B12 423 pg/mL (232-1245) 05/18/17 05:10 Folic Acid 17.6 ng/mL (>3.0) 05/18/17 05:10 Free T4 1.41 ng/dL (0.82-1.77) 05/18/17 05:10 TSH 4.02 uIU/ml (0.34-5.60) 05/18/17 05:10 Urine Source RANDOM 05/16/17 19:05 Urine Color YELLOW 05/16/17 19:05 Urine Clarity CLEAR (CLEAR) 05/16/17 19:05 Urine pH 8.0 (4.6 - 8.0) 05/16/17 19:05 Ur Specific [place] 1.015 (1.005-1.030) 05/16/17 19:05 Urine Protein NEGATIVE mg/dL (NEGATIVE) 05/16/17 19:05 Urine Glucose (UA) 250 mg/dL (NEGATIVE) H 05/16/17 19:05 Urine Ketones TRACE mg/dL (NEGATIVE) 05/16/17 19:05 Urine Blood NEGATIVE (NEGATIVE) 05/16/17 19:05 Urine Nitrate NEGATIVE (NEGATIVE) 05/16/17 19:05 Urine Bilirubin NEGATIVE (NEGATIVE) 05/16/17 19:05 Urine Urobilinogen 1.0 E.U./dL (0.2 - 1.0) 05/16/17 19:05 Ur Leukocyte Esterase NEGATIVE (NEGATIVE) 05/16/17 19:05 Urine RBC NONE SEEN /hpf (0-5) 05/16/17 19:05 Urine WBC NONE SEEN /hpf (0-5) 05/16/17 19:05 Ur Epithelial Cells NONE SEEN /lpf (FEW) 05/16/17 19:05 Urine Bacteria NONE SEEN /hpf (NONE SEEN) 05/16/17 19:05 - Physical Exam Vitals and I&O: Vital Signs Temp 97.9 F 05/22/17 00:00 Pulse 73 05/22/17 00:00 Resp 20 05/22/17 04:00 BP 109/67 05/22/17 00:00 Pulse Ox 95 05/22/17 00:00 Intake & Output 05/21/17 05/22/17 05/22/17 18:59 06:59 18:59 Intake Total 1000 120 Balance 1000 120 Weight (lbs) 67.132 kg Intake: Intake, IV Amount 1000 Sodium Chloride 0.9% 1, 1000 000 ml @ 60 mls/hr IV . [id number] [facility] Rx#:[id number] Oral 120 Other: # Voids 5 # Bowel Movements 3 Active Medications: Current Medications Acetaminophen/Hydrocodone Bitart ([place] 5mg/325mg) 1 tab PO Q6H PRN PRN Reason: Pain (Moderate) Stop: 07/15/17 23:54 Last Admin: 05/21/17 15:18 Dose: 1 tab Alprazolam (Xanax) 0.25 mg PO Q6HR PRN; Protocol PRN Reason: Anxiety Stop: 07/16/17 12:10 Last Admin: 05/21/17 22:47 Dose: 0.25 mg Atorvastatin Calcium (Lipitor) 10 mg PO DAILY [facility] PRN Reason: Protocol Stop: 07/19/17 08:59 Last Admin: 05/21/17 09:09 Dose: 10 mg Bismuth Subsalicylate (Pepto-Bismol) 30 ml PO Q4HR PRN PRN Reason: GI DISTRESS Stop: 07/20/17 07:42 Carvedilol (Coreg) 3.125 mg PO BID [facility] Stop: 07/19/17 08:59 Last Admin: 05/21/17 16:44 Dose: 3.125 mg Carvedilol (Coreg) 6.25 mg PO DAILY [facility] Stop: 07/20/17 08:59 Last Admin: 05/21/17 09:08 Dose: 6.25 mg Digoxin (Lanoxin) 0.125 mg PO DAILY [facility] Stop: 07/16/17 12:14 Last Admin: 05/21/17 09:08 Dose: 0.125 mg Diltiazem HCl (Cardizem) 60 mg PO Q6HR [facility] Stop: 07/19/17 17:59 Last Admin: 05/22/17 00:00 Dose: Not Given Hydrochlorothiazide (Hctz) 12.5 mg PO DAILY [facility] Stop: 07/17/17 08:59 Last Admin: 05/21/17 09:07 Dose: 12.5 mg Sodium Chloride (Nacl 0.9%) 1,000 mls @ 60 mls/hr IV .[id number] [facility] Stop: 07/15/17 22:14 Last Admin: 05/21/17 15:13 Dose: 60 mls/hr Lactulose (Cephulac) 20 gm PO TID [facility] Stop: 07/17/17 13:59 Last Admin: 05/21/17 21:15 Dose: Not Given Lorazepam (Ativan) 1 mg IVP DAILY PRN; Protocol PRN Reason: Agitation Stop: 05/22/17 11:00 Losartan Potassium (Cozaar) 100 mg PO DAILY [facility] Stop: 07/17/17 08:59 Last Admin: 05/21/17 09:07 Dose: 100 mg Magnesium Hydroxide (Milk Of Magnesia) 30 ml PO HS [facility] Stop: 07/16/17 20:59 Last Admin: 05/21/17 22:44 Dose: Not Given Metoclopramide HCl (Reglan) 5 mg IVP Q8HR PRN PRN Reason: Abdominal Pain Stop: 07/19/17 09:50 Mineral Oil (Mineral Oil 30 Ml) 30 ml PO QID PRN PRN Reason: Constipation Stop: 07/17/17 17:49 Pantoprazole Sodium (Protonix) 40 mg IVP DAILY [facility] Stop: 07/16/17 12:29 Last Admin: 05/21/17 08:42 Dose: 40 mg Warfarin Sodium (Coumadin Per Pharmacy) 1 ea MC PRN PRN; Protocol PRN Reason: RX MONITORING Stop: 07/16/17 12:46 General: Alert HEENT: Atraumatic Neck: Supple Cardiovascular: Regular rate Lungs: Clear to auscultation Abdomen: Bowel sounds, Soft Extremities: Other (No edema, ) Neurological: Other (non ambulatory.) Skin: Other (warm and dry) Psych/Mental Status: Mental status NL Nutritional Asmnt/Malnutr-PDOC - Dietary Evaluation Malnutrition Findings (Please click <Entered> for more info): Nutritional Asmnt/Malnutrition Start: 05/17/17 12: 52 Text: Status: Complete Freq: Document 05/17/17 12:52 NATALYA (Rec: 05/17/17 13:15 [facility] Nutritional Asmnt/Malnutrition Patient General Information Nutritional Screening Consult Diagnosis syncope Pertinent Medical Hx/Surgical Hx Afib, CAD, HTN, COPD, Hiatal hernia, weakness, PVD Subjective Information Consult received for Diabetic, small skin tear, discoloration and no appetite to eat. Spoke with patient and family at bedside. She states she does not follow a pureed diet at home, she eats soft foods. She avoids all fish because she is allergic to shellfish. Missing teeth noted . She states appetite is poor but getting better. She does like Ensure/Boost. Only ate mashed potatoes and cream of wheat today. Current Diet Order/ Nutrition Support Pureed Patient / S.O Can Pertinent Medications lactulose, MOM, protonix, coumadin Pertinent Labs Glucose 140-244, magnesium 1.6 , Total bilirubin 2, ammonia 64, total protein 5.5, albumin 3.5 Nutritional Hx/Data Height 1.55 m Height (Calculated Centimeters) 154.9 Current Weight (lbs) 67.132 kg Weight (Calculated Kilograms) 67.1 Weight (Calculated Grams) 10906.7 [place] Body Weight 105 % [place] Body Weight 140 Body Mass Index (BMI) 27.9 Recent Weight Change No Weight Status Overweight GI Symptoms GI Symptoms Constipation Last BM None noted since admission Difficult in: None Food Allergies Yes: Shellfish Cultural/Ethnic/Gnosticist Belief None indicated Usual diet at home Regular Skin Integrity/Comment: [place] 15, Skin tear Lower extremity Current %PO Poor (25-49%) Estimated Nutritional Goals BEE in Kcals: Using Current wt Calories/Kcals/Kg 67.2kg CBW (25-30 kcal/kg) Kcals Calculated ~8959-6813 kcal/day Protein: Using Current wt Protein g/k gm/kg Protein Calculated ~65 gm/day Fluid: ml ~9029-9980 ml/day (1 ml/kcal) Nutritional Problem 2. Problem Problem Altered GI function related to Etiology constipation aeb Signs/Symptoms: no BM since admission. 1. Problem Problem Inadequate oral itake related to Etiology decreased appetite, increased nutrient needs Signs/Symptoms: aeb meeting <50% of estimated nutrient needs Intervention/Recommendation Comments 1. Consider modifying diet from Pureed to soft with chopped meat due to patient preferences; states she would eat more if the food was not pureed. Add Boost pudding with meals to optimize nutrient intake. 2. Bowel regimen per MD; bowel movement may help with appetite. 3. If appetite still not improved, MD to consider appetite stimulant to help oral intake. 4. If POC glucose increases, consider modifying to 60 gm CCHO. 5. Consider MVI and Vitamin C due to impaired skin integrity . Expected Outcomes/Goals Expected Outcomes/Goals Oral intake to meet >75% of estimated nutrient needs, nutrition related labs normalize, weight stable, improved skin integrity.
[2017-05-22 07:33] LABS: BUN - UREA NITROGEN 8 mg/dL (7-25); CALCIUM SERUM 8.4 mg/dL (8.6-10.3); CARBON DIOXIDE 31.6 mEq/L (21.0-31.0); CHLORIDE 97 mEq/L (98-107); CREATININE - SERUM 0.4 mg/dL (0.6-1.2); GLUCOSE 136 mg/dL (70-105); INR 2.5 (0.5-1.4); POTASSIUM SERUM 3.6 mEq/L (3.5-5.1); PROTHROMBIN TIME (TEST) 27.2 SECONDS (9.5-11.5); SODIUM SERUM 135 mEq/L (136-145)
[2017-05-22] MEDS: Atorvastatin Calcium 10 MG TAB PO SCH (09:57)
[2017-05-22] MEDS: Lactulose 10 Gm/15 mL 30mL UDC PO SCH ×2 (10:00→13:24)
[2017-05-22] MEDS: Sodium Chloride 0.9% 1,000 ML IV SCH (10:07)
--- NOTE | 2017-05-22 11:34 | Discharge Summary ---
DATE OF DISCHARGE: 05/22/2017 ADMITTING DIAGNOSES: 1. Generalized weakness with a near non-syncopal fall, rule out syncope. 2. Poor p.o. intake. 3. Nausea, vomiting. 4. Large hiatal hernia. 5. Transaminitis. SECONDARY DIAGNOSES: Include history of large hiatal hernia with previous repairs x 2, history of atrial fibrillation, type 2 diabetes, chronic anxiety, essential hypertension, history of vertigo, history of chronic anemia, history of chronic debility. DISCHARGE DIAGNOSES: 1. Generalized weakness, stable. 2. Poor p.o. intake improved. 3. Large hiatal hernia. 4. Transaminitis, improved. 5. Near non-syncopal fall 2ry to acute on chronic weakness/debility. CONSULTANTS: Dr. Amador Neurology, Dr. Coronado, GI, Dr. Garzon, General Surgery. MAJOR PROCEDURES: Head CT without contrast done on 05/16/2017: 1. No acute abnormalities. Extensive cerebral atrophy with some focal encephalomalacia seen within the left temporoparietal area. 2. Small hypodense focus within the right temporal white matter region that might represent an old infarct. 3. Supratentorial white matter changes that may be associated with chronic small vessel ischemic disease. 4. Atherosclerotic vascular changes. There was a chest CT done on 05/16/2017 showin. A large retrocardiac hiatal hernia. 2. Bilateral pulmonary parenchymal changes, most likely chronic. 3. Generous heart size with evidence of coronary artery and atherosclerotic vascular calcification. Carotid artery ultrasound done on 05/17/2017, mild bilateral atherosclerotic changes that do not appear to be hemodynamically significant. Abdominal ultrasound done on 05/18/2017 shows; 1. Status post cholecystectomy. 2. Limited study due to large amount of intraabdominal bowel gas. Cervical spine MRI done on 05/20/2017; 1. Technically compromised exam due to difficulty in the patient positioning. 2. Minimal extradural indentation at C3-C4 that may reflect small spur formation or minimal central disk protrusion. 3. Evidence of degenerative disk disease at all levels. 4. No other definite abnormalities. There was a thoracic spine MRI done on the 05/20/2017 showing; 1. Compression involving multiple mid and lower thoracic vertebral bodies. 2. No significant extradural abnormalities. 3. Bilateral pleural effusions. 4. Dilatation of the right renal collecting system. There was a 2D echo done on 05/20/2017 showing normal 2D echo with an EF of 72%. Upper GI series done 05/21/2016, showing; 1. Limited exam demonstrating a moderate size hiatal hernia. 2. Probable small amount of gastroesophageal reflux. BRIEF HOSPITAL COURSE: The patient is an 81-year-old female who presented to the ER after a near fall which at the beginning was thought to be a possible syncopal episode, but per family's history, was just a near mechanical fall as the patient was walking and she was noted to be wobbly and apparently one of her legs gave out and she had to be helped by one of her daughters. She had been experiencing generalized symptoms such as weakness, abdominal pain, nausea, vomiting and poor p.o. intake for a few days prior to admission. The patient was admitted and she underwent a syncopal workup and given her history of large hiatal hernia, a CT of the chest was done revealing a large hiatal hernia as noted above. She does have a longstanding history of hiatal hernia and has had surgeries done many years ago in the [facility]. The patient was also seen by GI and General Surgery given this finding, but it was determined that because of the size of the hernia, she needed to be transferred to higher level of care. The patient has remained stable, although she was noted to be taking minimal p.o., but her abdominal pain and her nausea did improved. Her n/ v improved with IV PPI, IV reglan and IV zofran, and her PO intake did improve. However, she has remained weak and tired, but otherwise,clinically stable. Her vital signs have remained stable and her blood work also have remained fairly normal with no major acute changes.stable. She has a hx of chronic anemia which has been monitored on a daily basis given the fact that she takes Coumadin for atrial fibrillation. Her INR also has remained overall therapeutic. Her 2 daughters initially wanted the patient to be transferred to a higher level of care, given her large hiatal hernia. automotive center manager was able to set up a conference with [facility] GI service (Dr. Barba) with whom I discussed her case. He suggested outpatient GI and surgical followup , as her clinical picture does not warrant a higher level of care. Our GI economic consultant also had discussion with Dr. Barba and concurred with this decision. The patient's family was given the option of home health or penitentiary facility placement and they have decided on a penitentiary facility placement at this time. DISCHARGE MEDICATIONS: Xanax 0.25 q. 6 p.r.n. for anxiety, atorvastatin 10 daily, Pepto-Bismol 30 mL q. 4h. p.r.n. for GI distress, Coreg 6.25 daily, clonidine p.r.n. for SBP greater than 180, digoxin 0.125 daily, Cardizem 60 mg q.6h., hydrochlorothiazide 12.5 every day, [place] q. 6h. p.r.n. for moderate pain, lactulose 20 grams t.i.d., losartan 100 mg every day, milk of magnesia 30 mL at bedtime, Reglan 5 mg p.o. before meals, mineral oil 30 mL q.i.d. p.r.n. for constipation, NS at 60 mL per hour, Protonix 40 mg p.o. every day, Coumadin per pharmacy. CONDITION ON DISCHARGE: Stable. DISPOSITION: The patient will be discharged to a local SNF to be determined by family's decision. JOB# [id number] PAVEL
[2017-05-22] MEDS: Diltiazem 30 mg Tab PO SCH ×2 (13:24)
--- NOTE | 2017-05-22 13:50 | GI Progress Note ---
Subjective - Review of Systems Subjective: NO EVENTS JNAICE DIET BEING D/C TODAY Objective - Results Result Diagrams: 05/22/17 06:40 05/22/17 06:40 Recent Labs: Laboratory Last Values WBC 5.8 Th/cmm (4.8-10.8) 05/22/17 06:40 RBC 3.49 Mil/cmm (3.80-5.20) L 05/22/17 06:40 Hgb 10.5 gm/dL (12-16) L 05/22/17 06:40 Hct 31.0 % (41.0-60) L 05/22/17 06:40 MCV 88.9 fl (81-100) 05/22/17 06:40 MCH 30.0 pg (27.0-31.0) 05/22/17 06:40 MCHC Differential 33.7 pg (28.0-36.0) 05/22/17 06:40 RDW 13.5 % (11.5-20.0) 05/22/17 06:40 Plt Count 199 Th/cmm (150-400) 05/22/17 06:40 MPV 9.0 fl 05/22/17 06:40 Neutrophils % 65.9 % (40.0-80.0) 05/22/17 06:40 Band Neutrophils % 6 % (0-10) 05/16/17 18:40 Lymphocytes % 19.5 % (20.0-50.0) L 05/22/17 06:40 Monocytes % 7.0 % (2.0-10.0) 05/22/17 06:40 Eosinophils % 7.5 % (0.0-5.0) H 05/22/17 06:40 Basophils % 0.1 % (0.0-2.0) 05/22/17 06:40 Neutrophils (Manual) 84 % (40-80) H 05/16/17 18:40 Lymphocytes 7 % (20-50) L 05/16/17 18:40 Monocytes 3 % (2-10) 05/16/17 18:40 Eosinophils 0 % (0-5) 05/16/17 18:40 Basophils 0 % (0-3) 05/16/17 18:40 Platelet Estimate ADEQUATE (NORMAL) 05/16/17 18:40 Platelet Morphology NORMAL (NORMAL) 05/16/17 18:40 RBC Morph Micro Appear NORMAL (NORMAL) 05/16/17 18:40 ESR 26 mm/hr (0-30) 05/18/17 05:10 PT 27.2 SECONDS (9.5-11.5) H 05/22/17 06:40 INR 2.50 (0.5-1.4) H 05/22/17 06:40 Specimen Source arterial 05/16/17 19:27 Sample Site right radial 05/16/17 19:27 pH 7.50 (7.35-7.45) H 05/16/17 19:27 pCO2 50.0 mmHg (35.0-45.0) H 05/16/17 19:27 pO2 82.0 mmHg (80.0-100.0) 05/16/17 19:27 HCO3 35.7 mEq/L (20.0-26.0) H 05/16/17 19:27 Base Excess 13.8 mEq/L (-3.0-3.0) H 05/16/17 19:27 O2 Saturation 97.0 % (92.0-100.0) 05/16/17 19:27 Antonio Test positive 05/16/17 19:27 Vent Rate n/a 05/16/17 19:27 Inspired O2 28 05/16/17 19:27 Tidal Volume n/a 05/16/17 19:27 PEEP n/a 05/16/17 19:27 Pressure (ins/psv/peep) n/a 05/16/17 19:27 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 05/16/17 19:27 Sodium 135 mEq/L (136-145) L 05/22/17 06:40 Potassium 3.6 mEq/L (3.5-5.1) 05/22/17 06:40 Chloride 97 mEq/L (98-107) L 05/22/17 06:40 Carbon Dioxide 31.6 mEq/L (21.0-31.0) H 05/22/17 06:40 Anion Gap 10.0 (7.0-16.0) 05/22/17 06:40 BUN 8 mg/dL (7-25) 05/22/17 06:40 Creatinine 0.4 mg/dL (0.6-1.2) L 05/22/17 06:40 Est GFR ( Amer) TNP 05/22/17 06:40 Est GFR (Non-Af Amer) TNP 05/22/17 06:40 BUN/Creatinine Ratio 20.0 05/22/17 06:40 Glucose 136 mg/dL (70-105) H 05/22/17 06:40 POC Glucose 147 MG/DL (70 - 105) H 05/17/17 00:14 Hemoglobin A1c % 7.3 % (4.0-6.0) H 05/16/17 18:40 Calcium 8.4 mg/dL (8.6-10.3) L 05/22/17 06:40 Magnesium 2.2 mg/dL (1.9-2.7) 05/20/17 05:20 Total Bilirubin 1.1 mg/dL (0.3-1.0) H 05/21/17 06:48 Direct Bilirubin 0.37 mg/dL (0.0-0.2) H 05/21/17 06:48 AST 36 U/L (13-39) 05/21/17 06:48 ALT 58 U/L (7-52) H 05/21/17 06:48 Alkaline Phosphatase 51 U/L (34-104) 05/21/17 06:48 Ammonia 64 umol/L (16-53) H 05/17/17 08:00 Creatine Kinase 358 U/L (30-223) H 05/18/17 05:10 CK-MB (CK-2) 3.0 ng/mL (0.6-6.3) 05/18/17 05:10 Troponin I 0.04 ng/mL (0.01-0.05) 05/17/17 06:19 C-Reactive Protein 4.5 mg/dL (0.0-0.9) H 05/18/17 05:10 B-Natriuretic Peptide 181.0 pg/mL (5.0-100.0) H 05/16/17 18:40 Total Protein 5.2 gm/dL (6.0-8.3) L 05/21/17 06:48 Albumin 3.2 gm/dL (3.7-5.3) L 05/21/17 06:48 Globulin 2.0 gm/dL 05/21/17 06:48 Albumin/Globulin Ratio 1.6 (1.0-1.8) 05/21/17 06:48 Triglycerides 138 mg/dL (<150) 05/17/17 06:19 Cholesterol 124 mg/dL (<200) 05/17/17 06:19 LDL Cholesterol Direct 80 mg/dL (75-193) 05/17/17 06:19 HDL Cholesterol 32 mg/dL (23-92) 05/17/17 06:19 Amylase 38 U/L (29-103) 05/16/17 18:40 Lipase 6 U/L (11-82) L 05/20/17 05:20 Aldolase 8.4 U/L (3.3-10.3) 05/18/17 05:10 Whole Bld Vitamin B1 100.1 nmol/L (66.5-200.0) 05/17/17 08:00 Vitamin B12 423 pg/mL (232-1245) 05/18/17 05:10 Folic Acid 17.6 ng/mL (>3.0) 05/18/17 05:10 Free T4 1.41 ng/dL (0.82-1.77) 05/18/17 05:10 TSH 4.02 uIU/ml (0.34-5.60) 05/18/17 05:10 Urine Source RANDOM 05/16/17 19:05 Urine Color YELLOW 05/16/17 19:05 Urine Clarity CLEAR (CLEAR) 05/16/17 19:05 Urine pH 8.0 (4.6 - 8.0) 05/16/17 19:05 Ur Specific [place] 1.015 (1.005-1.030) 05/16/17 19:05 Urine Protein NEGATIVE mg/dL (NEGATIVE) 05/16/17 19:05 Urine Glucose (UA) 250 mg/dL (NEGATIVE) H 05/16/17 19:05 Urine Ketones TRACE mg/dL (NEGATIVE) 05/16/17 19:05 Urine Blood NEGATIVE (NEGATIVE) 05/16/17 19:05 Urine Nitrate NEGATIVE (NEGATIVE) 05/16/17 19:05 Urine Bilirubin NEGATIVE (NEGATIVE) 05/16/17 19:05 Urine Urobilinogen 1.0 E.U./dL (0.2 - 1.0) 05/16/17 19:05 Ur Leukocyte Esterase NEGATIVE (NEGATIVE) 05/16/17 19:05 Urine RBC NONE SEEN /hpf (0-5) 05/16/17 19:05 Urine WBC NONE SEEN /hpf (0-5) 05/16/17 19:05 Ur Epithelial Cells NONE SEEN /lpf (FEW) 05/16/17 19:05 Urine Bacteria NONE SEEN /hpf (NONE SEEN) 05/16/17 19:05 - Physical Exam Vitals and I&O: Vital Signs Temp 98.8 F 05/22/17 11:19 Pulse 70 05/22/17 13:24 Resp 20 05/22/17 11:19 BP 128/78 05/22/17 09:59 Pulse Ox 95 05/22/17 11:19 Intake & Output 05/21/17 05/22/17 05/22/17 18:59 06:59 18:59 Intake Total 6498 885 0014 Balance 0084 776 [id number] Weight (lbs) 67.132 kg Intake: Intake, IV Amount 1000 1000 Sodium Chloride 0.9% 1, 1000 1000 000 ml @ 60 mls/hr IV . [id number] [facility] [place] Rx#:[id number] Oral 120 Other: # Voids 5 # Bowel Movements 3 Stool Characteristics Liquid Active Medications: Current Medications Acetaminophen/Hydrocodone Bitart ([place] 5mg/325mg) 1 tab PO Q6H PRN PRN Reason: Pain (Moderate) Stop: 07/15/17 23:54 Last Admin: 05/21/17 15:18 Dose: 1 tab Alprazolam (Xanax) 0.25 mg PO Q6HR PRN; Protocol PRN Reason: Anxiety Stop: 07/16/17 12:10 Last Admin: 05/22/17 10:48 Dose: 0.25 mg Atorvastatin Calcium (Lipitor) 10 mg PO DAILY [facility] [place] PRN Reason: Protocol Stop: 07/19/17 08:59 Last Admin: 05/22/17 09:57 Dose: 10 mg Bismuth Subsalicylate (Pepto-Bismol) 30 ml PO Q4HR PRN PRN Reason: GI DISTRESS Stop: 07/20/17 07:42 Carvedilol (Coreg) 3.125 mg PO BID [facility] [place] Stop: 07/19/17 08:59 Last Admin: 05/22/17 09:57 Dose: 3.125 mg Digoxin (Lanoxin) 0.125 mg PO DAILY [facility] [place] Stop: 07/16/17 12:14 Last Admin: 05/22/17 09:59 Dose: 0.125 mg Diltiazem HCl (Cardizem) 60 mg PO Q6HR [facility] [place] Stop: 07/19/17 17:59 Last Admin: 05/22/17 13:24 Dose: 60 mg Hydrochlorothiazide (Hctz) 12.5 mg PO DAILY [facility] [place] Stop: 07/17/17 08:59 Last Admin: 05/22/17 09:58 Dose: 12.5 mg Sodium Chloride (Nacl 0.9%) 1,000 mls @ 60 mls/hr IV .[id number] [facility] [place] Stop: 07/15/17 22:14 Last Admin: 05/22/17 10:07 Dose: 60 mls/hr Lactulose (Cephulac) 20 gm PO TID [facility] [place] Stop: 07/17/17 13:59 Last Admin: 05/22/17 13:24 Dose: Not Given Losartan Potassium (Cozaar) 100 mg PO DAILY [facility] [place] Stop: 07/17/17 08:59 Last Admin: 05/22/17 09:59 Dose: 100 mg Magnesium Hydroxide (Milk Of Magnesia) 30 ml PO HS [facility] [place] Stop: 07/16/17 20:59 Last Admin: 05/21/17 22:44 Dose: Not Given Metoclopramide HCl (Reglan) 5 mg IVP Q8HR PRN PRN Reason: Abdominal Pain Stop: 07/19/17 09:50 Mineral Oil (Mineral Oil 30 Ml) 30 ml PO QID PRN PRN Reason: Constipation Stop: 07/17/17 17:49 Pantoprazole Sodium (Protonix) 40 mg IVP DAILY [facility] [place] Stop: 07/16/17 12:29 Last Admin: 05/22/17 10:01 Dose: 40 mg Warfarin Sodium (Coumadin Per Pharmacy) 1 ea [facility] PRN PRN; Protocol PRN Reason: RX MONITORING Stop: 07/16/17 12:46 General: Alert HEENT: Atraumatic Neck: Supple Cardiovascular: Regular rate Lungs: Clear to auscultation Abdomen: Bowel sounds, Soft Extremities: Other (No edema, ) Neurological: Other (non ambulatory.) Skin: Other (warm and dry) Psych/Mental Status: Mental status NL Assessment/Plan - Assessment Assessment: 81 YO FEMALE WITH HIATAL HERNIA ELEVATED LFTS [facility]ANY SHOWED S/P JEANNINE UGI SERIES SHOWED HIATAL HERNIA 1.FOLLOW LFTS WITH PCP OUTPATIENT AND CONSIDER HEPATOLOGY EVAL 2.CONSIDER MRCP IF LFTS DO NOT NORMALIZE 3.WILL NEED [facility]ERRAL [facility] 4.WILL SEE PT NEEDED; CALL IF QUESTIONS
[2017-05-22] MEDS: Hydrocodone/APAP 5mg/325mg Tab PO PRN (13:52)
== END 2017-05-22 12:30 | DRG 392 ==
LOC: ER 16:24 → TELE 21:40
PROVIDERS: ADMIT Internal Medicine; ATTEND Internal Medicine
DX: K44.9 Diaphragmatic hernia without obstruction or gangrene (principal); E11.40 Type 2 diabetes mellitus with diabetic neuropathy, unspecified; E11.51 Type 2 diabetes mellitus with diabetic peripheral angiopathy without gangrene; G82.20 Paraplegia, unspecified; M62.82 Rhabdomyolysis; I50.9 Heart failure, unspecified; I11.0 Hypertensive heart disease with heart failure; I48.0 Paroxysmal atrial fibrillation; J44.9 Chronic obstructive pulmonary disease, unspecified; I25.10 Atherosclerotic heart disease of native coronary artery without angina pectoris; K21.9 Gastro-esophageal reflux disease without esophagitis; K59.00 Constipation, unspecified; D64.9 Anemia, unspecified; M81.0 Age-related osteoporosis without current pathological fracture; F32.9 Major depressive disorder, single episode, unspecified; F41.9 Anxiety disorder, unspecified; R74.0 Nonspecific elevation of levels of transaminase and lactic acid dehydrogenase [LDH]; W18.30XA Fall on same level, unspecified, initial encounter; Y93.89 Activity, other specified; Y92.049 Unspecified place in boarding-house as the place of occurrence of the external cause; Y99.8 Other external cause status; Z88.0 Allergy status to penicillin; Z88.2 Allergy status to sulfonamides; Z79.84 Long term (current) use of oral hypoglycemic drugs; Z79.01 Long term (current) use of anticoagulants
CPT/HCPCS: 36415-UA; 70450-TC; 71010-TC; 71250-TC; 72141-TC; 76700-TC; 80048-TC; 80053-TC; 80061-TC; 80076-TC; 81001-TC; 82085-90; 82140-TC; 82150-TC; 82550-TC; 82553; 82607-90; 82746-90; 82803-TC; 82948-90; 83036-90; 83519-90; 83690-TC; 83735-TC; 83880-TC; 84425-90; 84439-90; 84443-TC; 84484-TC; 85007-TC; 85025-TC; 85027-TC; 85610-TC; 85652-TC; 86141-TC; 93005; 93307-TC; 93880-TC; 94760; 97530; C9113; J2060; J3475; J7030; X3401; X3904; Z7610; Z7610-TC